=== PATIENT | male | born 1965 ===

== ENCOUNTER → 2020-10-08 12:49 | Outpatient (BNVA) | payer MEDICAID, SELFPAY | PROVIDERS: PCP Internal Medicine; Referring Provider Internal Medicine; Visit Provider Student in an Organized Health Care Education/Training Program | DX: M79.7 Fibromyalgia (principal); Z79.899 Other long term (current) drug therapy | CPT/HCPCS: 99212 ==

== ENCOUNTER 2020-11-05 13:47 | Outpatient (REF) | payer MEDICAID, SELFPAY ==
[2020-11-05 16:29] LABS: Free T4 (Free Thyroxine) 1.28 ng/dL (0.71-1.85); Thyroid Stimulating Hormone 2.48 uIU/mL (0.32-4.0)
[2020-11-06 11:17] LABS: Thyroglobulin Antibodies >1000 IU/mL (< or = 1); Thyroid Peroxidase Antibodies >900 IU/mL (<9)
== END 2020-11-05 13:48 | disposition home or self-care (01) ==
LOC: HO.LAB 13:47
PROVIDERS: PCP Internal Medicine; Referring Provider Internal Medicine; Visit Provider Internal Medicine Endocrinology, Diabetes & Metabolism
DX: E03.9 Hypothyroidism, unspecified (principal)
CPT/HCPCS: 36415; 84439; 84443; 86376; 86800; 99202

== ENCOUNTER → 2020-11-10 08:27 | Outpatient (BNVA) | payer OTHER, SELFPAY | PROVIDERS: PCP Internal Medicine; Referring Provider Internal Medicine; Visit Provider Physician Assistant | DX: Z76.89 Persons encountering health services in other specified circumstances (principal) ==

== ENCOUNTER → 2020-11-10 09:39 | Outpatient (BNVA) | payer MEDICARE, MEDICAID, SELFPAY | PROVIDERS: PCP Internal Medicine; Referring Provider Internal Medicine; Visit Provider Physician Assistant | DX: Z13.89 Encounter for screening for other disorder (principal) | CPT/HCPCS: Q3014 ==

== ENCOUNTER 2021-03-25 | Outpatient (REF) | payer MEDICAID, SELFPAY | END 2021-03-25 00:01 | disposition home or self-care (01) | LOC: CF | PROVIDERS: PCP Internal Medicine; Visit Provider Urology | DX: N28.1 Cyst of kidney, acquired (principal); R39.89 Other symptoms and signs involving the genitourinary system; Z87.442 Personal history of urinary calculi | CPT/HCPCS: 99212 ==

== ENCOUNTER → 2021-04-09 12:42 | Outpatient (BNVA) | payer MEDICARE, SELFPAY | PROVIDERS: Visit Provider Internal Medicine Endocrinology, Diabetes & Metabolism | CPT/HCPCS: 99212 ==

== ENCOUNTER → 2021-10-01 13:27 | Outpatient (BNVA) | payer MEDICARE, MEDICAID, SELFPAY | PROVIDERS: PCP Physician Assistant; Visit Provider Nurse Practitioner Family | DX: M79.7 Fibromyalgia (principal) | CPT/HCPCS: 99212 ==

== ENCOUNTER 2022-03-22 13:09 | Outpatient (REF) | payer MEDICARE, MEDICAID, SELFPAY ==
--- NOTE | ~2022-03-22 | US_ITS ---
EXAMINATION: US RETROPERITONEAL LIMITED (RENAL ONLY) CLINICAL INFORMATION: Calculus of kidney. COMPARISON: None. TECHNIQUE: Real-time imaging of the kidneys. FINDINGS: RIGHT KIDNEY: 9.5 x 5.8 x 5.3 cm (SAG x AP x TRV). The kidney is normal in size, contour, and echogenicity. Renal cortical thickness is normal. No calculi or focal parenchymal lesions. No hydronephrosis. LEFT KIDNEY: 12.1 x 5.8 x 7.7 cm (SAG x AP x TRV). The kidney is normal in size, contour, and echogenicity. Renal cortical thickness is normal. No renal calculi or hydronephrosis. There are multiple anechoic cysts. 1. Upper/lateral cyst measures 1.3 x 0.7 x 0.8 cm. 2. Upper midpole lateral cyst measures 0.6 x 0.7 x 0.7 cm. 3. Midpole medial cyst measures 3.5 x 2.4 x 3.4 cm. 4. Midpole medial cyst measures 11.0 x 6.4 x 6.1 cm. US/US renal BI IMPRESSION: At least 4 simple anechoic left renal cysts. There are no echogenic renal calculi or hydronephrosis.
== END 2022-03-22 13:10 | disposition home or self-care (01) ==
LOC: HO.US 13:09
PROVIDERS: Visit Provider Urology
DX: N20.0 Calculus of kidney (principal); N28.1 Cyst of kidney, acquired
CPT/HCPCS: 76775

== ENCOUNTER → 2022-04-13 12:57 | Outpatient (BNVA) | payer MEDICARE, MEDICAID, SELFPAY | PROVIDERS: PCP Internal Medicine; Visit Provider Internal Medicine Endocrinology, Diabetes & Metabolism | DX: E03.9 Hypothyroidism, unspecified (principal); E04.9 Nontoxic goiter, unspecified | CPT/HCPCS: 99212 ==

== ENCOUNTER → 2022-05-21 11:50 | Outpatient (BNVA) | payer MEDICARE, MEDICAID, SELFPAY | PROVIDERS: PCP Internal Medicine; Visit Provider Urology | DX: R39.89 Other symptoms and signs involving the genitourinary system (principal); N28.1 Cyst of kidney, acquired | CPT/HCPCS: Q3014 ==

== ENCOUNTER 2022-06-03 13:21 | Outpatient (REF) | payer MEDICARE, MEDICAID, SELFPAY ==
[2022-06-03 14:21] LABS: Appearance Urine CLEAR; Color Urine YELLOW; Glucose Urine UA NEG (NEG); Leukocyte Esterase Urine NEG (NEG); Nitrite Urine NEG (NEG); PH 5.5 (5.0-8.0); Specific Gravity - Urine >= 1.030 (1.005-1.025); Urine Blood TRACE (NEG); Urine Ketones NEG (NEG); Urine Protein NEG (NEG-TRACE)
[2022-06-03 14:34] LABS: WBC Urine 0-2 /HPF (0-4)
[2022-06-03 14:40] LABS: Alanine Aminotransferase 33 U/L (0-40); Albumin Level 4.5 g/dL (3.5-5.0); Alkaline Phosphatase 103 U/L (39-117); Anion Gap 13 (12-20); Aspartate Amino Transferase 19 U/L (5-37); Bilirubin Total 0.6 mg/dL (0.0-1.0); Blood Urea Nitrogen 20 mg/dL (9-16); Calcium 9.9 mg/dL (8.4-10.2); Carbon Dioxide 26 mmol/L (22-29); Chloride 106 mmol/L (96-108); Cholesterol 238 mg/dL; Estimated Glomerular Filt Rate > 60; Glucose Fasting 88 mg/dL (60-99); HDL Cholesterol 36 mg/dL; LDL Cholesterol Calculated 160 mg/dl; Potassium 4.6 mmol/L (3.3-5.1); Sodium 140 mmol/L (135-145); Triglycerides 210 mg/dL
[2022-06-03 15:01] LABS: Free T4 (Free Thyroxine) 1.22 ng/dL (0.71-1.85); Thyroid Stimulating Hormone 2.84 uIU/mL (0.32-4.0)
== END 2022-06-03 13:22 | disposition home or self-care (01) ==
LOC: HO.LAB 13:21
PROVIDERS: Absent Provider Internal Medicine Endocrinology, Diabetes & Metabolism; PCP Internal Medicine; Referring Provider Internal Medicine; Visit Provider Urology
DX: E04.9 Nontoxic goiter, unspecified (principal); E78.2 Mixed hyperlipidemia; E03.9 Hypothyroidism, unspecified
CPT/HCPCS: 36415; 80053; 80061; 81001; 84439; 84443

== ENCOUNTER 2022-06-28 12:46 | Outpatient (REF) | payer MEDICARE, MEDICAID, SELFPAY ==
--- NOTE | ~2022-06-28 | US_ITS ---
EXAMINATION: US THYROID CLINICAL INFORMATION: Nontoxic multinodular goiter. COMPARISON: None TECHNIQUE: Linear transducer grayscale and color Doppler examination with attention to the region of the thyroid. FINDINGS: SIZE: Measurements of the thyroid lobes and nodules are given in sagittal, anteroposterior and transverse dimensions respectively. Right Thyroid Lobe: 6.1 x 2.7 x 2.0 cm, volume 16.8 mL. Parenchyma: The gland echotexture is heterogeneous. Thyroid vascularity is normal. Left Thyroid Lobe: 6.0 x 2.2 x 1.8 cm, volume 12.2 mL. Parenchyma: The gland echotexture is heterogeneous. Thyroid vascularity is increased. Isthmus: 0.3 cm in maximum AP dimension. Estimated total number of nodules greater than or equal to 1 cm: 1. Entomology Professor nodules are described as follows: 1. Location: Left upper pole. Size: 1.0 x 0.9 x 1.1 cm, volume 0.39 mL. Nodule characteristics: Composition: Solid/almost completely solid (2). Echogenicity: Hypoechoic (2). Shape: Not taller than wide (0). Margins: Smooth (0). Echogenic Foci: None (0). ACR TI-RADS total points: 4 ACR TI-RADS category: 4 2. Location: Left upper pole. Size: 0.7 x 0.4 x 0.6 cm, volume 0.1 mL. Nodule characteristics: Composition: Mixed cystic and solid (1). Echogenicity: Hypoechoic (2). Shape: Not taller than wide (0). Margins: Smooth (0). Echogenic Foci: None (0). ACR TI-RADS total points: 3 ACR TI-RADS category: 3 NODES: No lymphadenopathy is seen in the tissue surrounding the thyroid gland. US/US thyroid IMPRESSION: Enlarged heterogeneous thyroid gland which demonstrates mildly increased vascularity. There are two nodules noted within the left thyroid lobe for which follow-up imaging is advised. ACR TI-RADS RECOMMENDATION REFERENCE: Ultrasound-guided fine-needle aspiration, followup ultrasound, no further follow up. * TR3 (3 points): FNA if more than or equal to 2.5 cm in maximum dimension, followup ultrasound in 1, 3 and 5 years if 1.5 to 2.4 cm in maximum dimension. * TR4 (4-6 points): FNA if more than or equal to 1.5 cm in maximum dimension, followup ultrasound in 1, 2, 3 and 5 years if 1 to 1.4 cm in maximum dimension. * TR3, TR4 or TR5 nodules that are below the size threshold for follow up receive no follow up.
== END 2022-06-28 12:47 | disposition home or self-care (01) ==
LOC: HO.US 12:46
PROVIDERS: Visit Provider Internal Medicine Endocrinology, Diabetes & Metabolism
DX: E03.9 Hypothyroidism, unspecified (principal); E04.2 Nontoxic multinodular goiter
CPT/HCPCS: 76536

== ENCOUNTER → 2022-07-28 13:16 | Outpatient (BNVA) | payer MEDICARE, MEDICAID, SELFPAY | PROVIDERS: PCP Internal Medicine; Visit Provider Urology | DX: N28.1 Cyst of kidney, acquired (principal); N40.1 Benign prostatic hyperplasia with lower urinary tract symptoms; N13.8 Other obstructive and reflux uropathy; R35.0 Frequency of micturition; R39.15 Urgency of urination; Z87.442 Personal history of urinary calculi; Z79.899 Other long term (current) drug therapy | CPT/HCPCS: 99212 ==

== ENCOUNTER 2022-11-15 13:03 | Outpatient (REF) | payer MEDICARE, MEDICAID, SELFPAY ==
[2022-11-15 15:20] LABS: Alanine Aminotransferase 35 U/L (0-40); Albumin Level 4.5 g/dL (3.5-5.0); Alkaline Phosphatase 108 U/L (39-117); Anion Gap 13 (12-20); Aspartate Amino Transferase 22 U/L (5-37); Bilirubin Total 0.7 mg/dL (0.0-1.0); Blood Urea Nitrogen 23 mg/dL (9-16); Calcium 10.4 mg/dL (8.4-10.2); Carbon Dioxide 27 mmol/L (22-29); Chloride 106 mmol/L (96-108); Cholesterol 231 mg/dL; Estimated Glomerular Filt Rate > 60; Glucose Fasting 88 mg/dL (60-99); HDL Cholesterol 31 mg/dL; LDL Cholesterol Calculated 163 mg/dl; Potassium 4.5 mmol/L (3.3-5.1); Sodium 141 mmol/L (135-145); Thyroid Stimulating Hormone 1.95 uIU/mL (0.32-4.0); Total Protein 7.9 g/dL (6.5-8.0); Triglycerides 189 mg/dL; Vitamin D 25-OH Total 14.1 ng/mL (>30)
[2022-11-17 05:15] LABS: HIV AB/AG Nonreactive (Nonreactive); HIV Num 1 0.06 S/CO (0.00-0.99)
== END 2022-11-15 13:04 | disposition home or self-care (01) ==
LOC: HO.LAB 13:03
PROVIDERS: PCP Internal Medicine; Visit Provider Internal Medicine
DX: Z11.4 Encounter for screening for human immunodeficiency virus [HIV] (principal); M54.16 Radiculopathy, lumbar region; M53.3 Sacrococcygeal disorders, not elsewhere classified; E55.9 Vitamin D deficiency, unspecified; E78.2 Mixed hyperlipidemia; E78.5 Hyperlipidemia, unspecified; E03.9 Hypothyroidism, unspecified; R53.83 Other fatigue; M79.7 Fibromyalgia
CPT/HCPCS: 36415; 80053; 80061; 82306; 84443; 87389; 99212

== ENCOUNTER → 2023-02-15 13:11 | Outpatient (BNVA) | payer MEDICARE, MEDICAID, SELFPAY | PROVIDERS: PCP Physician Assistant; Visit Provider Nurse Practitioner Family | DX: M79.7 Fibromyalgia (principal); M54.16 Radiculopathy, lumbar region; E55.9 Vitamin D deficiency, unspecified; Z79.899 Other long term (current) drug therapy | CPT/HCPCS: 99212 ==

== ENCOUNTER 2023-07-12 13:03 | Outpatient (REF) | payer MEDICARE, MEDICAID, SELFPAY ==
--- NOTE | ~2023-07-12 | US_ITS ---
EXAMINATION: US RETROPERITONEAL LIMITED (RENAL ONLY) CLINICAL INFORMATION: Cyst of kidney, acquired. COMPARISON: Renal ultrasound 03/22/2022. TECHNIQUE: Real-time imaging of the kidneys. FINDINGS: RIGHT KIDNEY: 10.0 x 5.0 x 5.3 cm (SAG x AP x TRV). The kidney is normal in size, contour, and echogenicity. Renal cortical thickness is normal. No renal calculi or hydronephrosis. At the upper pole, a 7 mm benign, simple cyst is seen. At the interpolar aspect, 7 mm and 7 mm benign, simple cysts are seen. These require no imaging follow-up. LEFT KIDNEY: 12.1 x 6.0 x 4.8 cm (SAG x AP x TRV). The kidney is normal in size, contour, and echogenicity. Renal cortical thickness is normal. No renal calculi or hydronephrosis. At the interpolar aspect, 1.1 cm, 0.7 cm, 3.0 cm and 10.5 cm benign, simple cysts are seen. As well, these require no imaging follow-up. US/US renal BI IMPRESSION: Benign, simple bilateral cysts are redemonstrated, requiring no imaging follow-up. The examination is otherwise unremarkable.
== END 2023-07-12 13:04 | disposition home or self-care (01) ==
LOC: HO.US 13:03
PROVIDERS: PCP Internal Medicine; Visit Provider Urology
DX: N28.1 Cyst of kidney, acquired (principal)
CPT/HCPCS: 76775

== ENCOUNTER 2023-07-26 13:37 | Outpatient (AMB) | payer MEDICARE, MEDICAID, SELFPAY ==
--- NOTE | 2023-07-26 13:47 | MHC.OFFVIS ---
Intake Intake Visit Reasons: 1Y US(set) Intake Note: Patient is present for Follow Up Ultrasound Urology Med: Terazosin Antibiotic Allergy:None Blood Thinner: None Pharmacy: [facility] Allergies nalbuphine [From Nubain] Allergy (Intermediate, Verified 08/04/23 13:30) Rash tramadol [TRAMADOL] Allergy (Intermediate, Verified 08/04/23 13:30) tachycardia HPI HPI Comments History of Present Illness Details Josh FLOWERS is a very pleasant male. He is a patient of Dr Mauro. He seen for the following urologic conditions. - renal cyst - nephrolithiasis - lower urinary tract symptoms Yi translation provided by qualified medical insurance coder Yearly follow-up Imaging stable no further follow-up required Good effect with terazosin continues Lower urinary tract symptoms Initial symptoms urinary urgency and frequency with weak stream Bladder ultrasound 12/18 minimal residual, no thickening Current therapy terazosin 5 mg Prior therapy tamsulosin Nephrolithiasis/Urolithiasis: 2018 Follow in 12 months with ultrasound the kidneys They are here for further evaluation of nephrolithiasis. Urolithiasis was diagnosed 07/07 [facility]. The patient previously had kidney stones whose composition w unknown. Laboratory investigations include no recent labs. 24 Hour urine evaluation none on file. Prior treatment(s) include observation. Prior imaging includes 07/15 , a CT (computed tomography) scan of the abdomen/pelvis (stone protocol) - 4.2 and 3.7 mm distal right ureter 07/15 , a renal ultrasound, showing no evidence of stones Left 5cm renal cyst 01/16 , a renal ultrasound, showing no evidence of stones, cyst on left side unchanged 01/17 , a renal ultrasound, showing no evidence of stones, left 6cm cyst - 03/19 renal ultrasound multiple cyst on left kidney Hydronephrosis none. PSA 03/18 0.7 Current therapeutic plan will be to continue with imaging surveillance [facility] Medical History Mild recurrent major depression Mixed hyperlipidemia Physical exam Hypothyroidism Non-toxic nodular goiter History of COVID-19 Insomnia Autoimmune thyroiditis Depression with anxiety Bladder pain Fibromyalgia GERD (gastroesophageal reflux disease) DDD (degenerative disc disease) Back pain Anxiety Depression Hx of renal calculi History of pericarditis Hyperlipidemia YEYS on CPAP Surgical History No significant past surgical history Family History Father Leukemia Liver cancer Mother Diabetes HTN (hypertension) CAD (coronary artery disease) Family/Other FH: mental illness Other FH: hypothyroidism Social History Household Members: Spouse Housing: Apartment Are you a primary manager managed care to a significant other at home: No Do you presently have visiting nurse or other home services: No Alcohol intake: never Patient Tobacco Use Status: Former Tobacco user Quit Date: 2016 Tobacco use type: Cigarette e-Cigarette/Vaping Use: Never Used Second Hand Smoke Exposure: No service: No Current occupational status: unemployed and disabled Cognitive needs: No Hearing needs: No Vision needs: Yes Review of Systems Const Denies chills and Denies fever(s) Card Reports no additional complaints and Denies syncope Resp Denies cough GI Denies abdominal pain and Denies heartburn Reports as per HPI and Denies change in libido Neuro Denies syncope Psych Denies change in libido Endo Denies change in libido Physical Exam Const General: cooperative, healthy appearing, comfortable and no acute distress Orientation/consciousness: patient oriented x3 HEENT Face and sinus: Yes normal facial exam Mouth: moist mucous membranes Neck Neck: Yes normal visual inspection, Yes full ROM and Yes trachea midline Chest Chest palpation & inspection: normal inspection of the chest Resp Effort & Inspection: normal respiratory effort, able to speak in complete sentences and no respiratory distress GI Inspection: Yes normal to inspection Back/Spine/Pelvis Cervical Spine: normal cervical lordosis Thoracic/Lumbar Spine: thoracic and lumbar spine normal to inspection Skin General skin exam: no rashes or lesions noted Neuro General: patient oriented x3, gait normal, tone normal and moves all extremities Extrem General: Yes normal to inspection and Yes capillary refill normal Assessment & Plan Assessment & Plan (1) Urinary urgency: Code(s): R39.15 - Urgency of urination (2) Renal cyst: Code(s): N28.1 - Cyst of kidney, acquired (3) Hx of renal calculi: Code(s): Z87.442 - Personal history of urinary calculi Plan 12 month follow-up PSA and renal ultrasound Orders: Orders Prostate Specific Antigen 364 Days N28.1 - Cyst of kidney, acquired US renal BI 364 Days N28.1 - Cyst of kidney, acquired Patient Instructions: Imaging studies, laboratory and physical exam results were discussed and reviewed in detail. No major barriers to patient understanding were identified. An opportunity to ask questions regarding the treatment plan was provided. All questions were answered. The patient expressed understanding and agreement with the above treatment plan. The patient is aware they should contact our office by phone for worsening of their current condition or the appearance of new urologic symptoms. Compliance is encouraged with any medications and followup testing that is ordered. It is a privilege to participate in the urologic care of your patient. If you have any questions or concerns regarding treatment for the above conditions, or other urologic issues, please do not hesitate to contact me. The office telephone contact is [phone]. This note is constructed using voice recognition software. While every effort has been made to ensure accuracy solar installer errors may have been included. Yours sincerely, Dr Tohmas Wray MD, [facility] - Urology Providers of Expert, Compassionate Care for the Genitourinary System Coding Level of Care Code Est Pt Level 4 (48548) Diagnoses Urinary urgency R39.15 Renal cyst N28.1 Hx of renal calculi Z87.442
== END 2023-07-26 14:19 | disposition home or self-care (01) ==
PROVIDERS: PCP Internal Medicine; Visit Provider Urology
DX: R39.15 Urgency of urination (principal); N28.1 Cyst of kidney, acquired; Z87.442 Personal history of urinary calculi
CPT/HCPCS: 99214

== ENCOUNTER → 2023-07-26 13:37 | Outpatient (BNVA) | payer MEDICARE, MEDICAID, SELFPAY | PROVIDERS: Visit Provider Urology | DX: R39.15 Urgency of urination (principal); N28.1 Cyst of kidney, acquired; Z87.442 Personal history of urinary calculi | CPT/HCPCS: 99212 ==

== ENCOUNTER 2023-08-04 13:08 | Outpatient (AMB) | payer MEDICARE, MEDICAID, SELFPAY ==
[2023-08-04 13:11] VITALS: BP 112/80; PULSE 101; O2SAT 96; BMI 28.7
--- NOTE | 2023-08-04 13:11 | MHC.PC.OV ---
Vital Signs 08/04/23 13:11 Height 5 ft 10 in Weight 200 lb BMI 28.7 BP 112/80 Blood Pressure Location Lt brachial Position Sitting Pulse 101 H Pulse Source Pulse Oximeter Pulse Oximetry (%) 96 Oxygen Delivery Method Room Air Intake Visit Reasons: thyroid Correction Warden Required: No Accompanied by: Self / Same As Patient Allergies nalbuphine [From Nubain] Allergy (Intermediate, Verified 08/04/23 13:30) Rash tramadol [TRAMADOL] Allergy (Intermediate, Verified 08/04/23 13:30) tachycardia Medication List - Last Reconciled 08/04/23 by Rhianna Mauro MD alprazolam 0.25 mg PO DAILY PRN 30 days atorvastatin 20 mg PO BEDTIME 90 days cholecalciferol (vitamin D3) 50 mcg PO DAILY diclofenac sodium 1% (Voltaren Arthritis Pain) 4 grams topical QID PRN duloxetine 60 mg PO DAILY fluoxetine 1 cap PO QAM gabapentin 300 mg PO BID 30 days hydroxyzine pamoate 1 cap PO TID ibuprofen 600 mg PO Q8H PRN 7 days levothyroxine 125 mcg PO DAILY 90 days risperidone 1 tab PO BEDTIME terazosin 5 mg PO BEDTIME 90 days trazodone 1 tab PO BEDTIME Tobacco use date assessed: 08/04/23 Dental Screening Dental Screen Date: 08/04/23 Did you have a dental visit in the last 12 months?: No Did you have a dental problem in the last 6 months where you did not have access to dental care?: No Was dental information given to patient?: No HPI HPI Comments History of Present Illness Details This is a 58-year-old male with mild recurrent major depression, hypothyroidism and mixed hyperlipidemia that comes today complaining of left ankle pain that started yesterday after he was visiting a patient at [facility] and was hit by meal cart in left ankle. Has a boot. Will be referred to physical therapy. Depression stable with SSRIs. TSH will be ordered. On statins for mixed hyperlipidemia and lipid panel will also be ordered. [facility] Medical History (Updated 08/04/23 @ 13:40 by Rhianna Mauro MD) Mild recurrent major depression Mixed hyperlipidemia Physical exam Hypothyroidism Non-toxic nodular goiter History of COVID-19 Insomnia Autoimmune thyroiditis Depression with anxiety Bladder pain Fibromyalgia GERD (gastroesophageal reflux disease) DDD (degenerative disc disease) Back pain Anxiety Depression Hx of renal calculi History of pericarditis Hyperlipidemia YESY on CPAP Surgical History No significant past surgical history Family History Father Leukemia Liver cancer Mother Diabetes HTN (hypertension) CAD (coronary artery disease) Family/Other FH: mental illness Other FH: hypothyroidism Social History Household Members: Spouse Housing: Apartment Are you a primary healthcare representative to a significant other at home: No Do you presently have visiting nurse or other home services: No Alcohol intake: never Patient Tobacco Use Status: Former Tobacco user Quit Date: 2016 Tobacco use type: Cigarette e-Cigarette/Vaping Use: Never Used Second Hand Smoke Exposure: No service: No Current occupational status: unemployed and disabled Cognitive needs: No Hearing needs: No Vision needs: Yes Questionnaire PHQ-9 Over the last 2 weeks, how often have you been bothered by any of the following problems? 1. Little interest or pleasure in doing things: not at all 2. Feeling down, depressed, or hopeless: not at all 3. Trouble falling or staying asleep, or sleeping too much: not at all 4. Feeling tired or having little energy: not at all 5. Poor appetite or overeating: not at all 6. Feeling bad about yourself - or that you are a failure or have let yourself or your family down: not at all 7. Trouble concentrating on things, such as reading the newspaper or watching television: not at all 8. Moving or speaking so slowly that other people could have noticed. Or the opposite - being so fidgety or restless that you have been moving around a lot more than usual: not at all 9. Thoughts that you would be better off or of hurting yourself in some way: not at all Total score: 0 Depression Screening Interpretation: Negative 47372 - PHQ-9 Billing: Yes Source: Developed by Drs. Elijah Krause, Elsie Castelan, Syd Carvalho and colleagues, with an educational robb from [employer]. Thrive Questionnaire Date Thrive assessed: 08/04/23 I am a: Patient What is your living situation today?: I have a steady place to live Within the past 12 months, did the food you bought not last and you didn't have the money to get more?: Never true Within the past 12 months, did you worry whether your food would run out before you got money to buy more?: Never true Do you have trouble paying for medicines?: No Do you have trouble getting transportation to medical appointments?: No Do you have trouble paying your heating and electricity bill?: No Do you have trouble taking care of your child, family member or friend?: No Do you have trouble with day-to-day activities such as bathing, preparing meals, shopping, managing finances, etc.?: No Are you currently unemployed and looking for a job?: No Are you interested in more education?: No Please select the resources that you would like help with: None Currently or been in a relationship where the following occur: no concerns reported AUDIT C Alcohol Use Questionnaire (AUDIT-C) 1. How often do you have a drink containing alcohol?: Never Total Score: 0 VAISHALI-7 AMB Questionnaire VAISHALI-7 Date VAISHALI - 7 assessed: 08/04/23 Feeling nervous, anxious, or on edge: 0 = Not at all Not being able to stop or control worryin = Not at all Worrying too much about different things: 0 = Not at all Trouble relaxin = Not at all Being so restless that it is hard to sit still: 0 = Not at all Becoming easily annoyed or irritable: 0 = Not at all Feeling afraid as if something awful might happen: 0 = Not at all Total VAISHALI-7 score (0-4 normal; 5-9 mild; 10-14 moderate; 15-21 severe): 0 Source: Developed by Drs. Elijah Krause, Elsie Castelan, Syd Carvalho and colleagues, with an educational robb from [employer]. VAISHALI-7 Assessment Billing VAISHALI-7 Assessment Tool: VAISHALI-7 Assessment 45293 Review of Systems Const All systems reviewed & are unremarkable except as noted in HPI and below Eyes Reports no additional complaints, Denies change in vision and Denies other visual disturbances Card Denies chest pain at rest, Denies chest pain with activity, Denies edema, Denies irregular heart rhythm, Denies claudication, Denies dyspnea, Denies dyspnea on exertion, Denies orthopnea, Denies paroxysmal nocturnal dyspnea and Denies slow heart rate Resp Denies cough, Denies dyspnea and Denies dyspnea on exertion GI Denies abdominal pain, Denies change in bowel habits, Denies excessive flatus, Denies nausea and Denies vomiting Denies urinary hesitancy, Denies urinary incontinence and Denies urinary urgency Musc Denies abnormal gait, Denies atrophy, Denies deformity and Denies limited range of motion Skin/Breast Denies bleeding lesions, Denies changing lesions and Denies rash Neuro Denies abnormal gait and Denies lack of coordination Physical exam (Primary Care) Vital Signs: Last Vital Signs Pulse 101 H 08/04/23 13:11 BP 112/80 08/04/23 13:11 Pulse Ox 96 08/04/23 13:11 Oxygen Delivery Method Room Air 08/04/23 13:11 BMI result Body Mass Index 28.7 Tobacco/Smoking Status: Tobacco use Status Tobacco use date assessed 08/04/23 08/04/23 13:18 Patient Tobacco Use Status Former Tobacco user 08/04/23 13:18 Tobacco use type Cigarette 08/04/23 13:18 e-Cigarette/Vaping Use Never Used 08/04/23 13:18 PHQ-9: PHQ-9 Score PHQ-9: Total score 0 08/04/23 13:18 Depression Screening Interpretation: Negative Thrive Assessment: Date of Thrive Assessment Date Thrive assessed 08/04/23 08/04/23 13:18 Currently or been in a relationship where the following occur: no concerns reported Const Other: Walk with crutches, left foot has boot Eyes General: appearance normal, both eyes and all related structures Eyelids: Yes eyelids normal Conjunctivae: conjunctivae normal Neck Neck: Yes normal visual inspection and Yes supple Resp Effort & Inspection: normal respiratory effort Auscultation: clear to auscultation bilaterally Cardio Jugular venous distension: no JVD Rate: regular rate Rhythm: regular rhythm Heart sounds: S1 normal heart sound present and S2 normal heart sound present Extrem General: Yes full ROM Assessment and Plan Assessment & Plan (1) Mild recurrent major depression: Code(s): F33.0 - Major depressive disorder, recurrent, mild Plan: Continue fluoxetine (2) Mixed hyperlipidemia: Code(s): E78.2 - Mixed hyperlipidemia Plan: Continue statins. Repeat lipid panel. (3) Hypothyroidism: Code(s): E03.9 - Hypothyroidism, unspecified Plan: Continue levothyroxine. (4) Left ankle sprain: Code(s): S93.402A - Sprain of unspecified ligament of left ankle, initial encounter Plan: Physical therapy ordered Orders: Orders Lipid Panel Today E78.5 - Hyperlipidemia, unspecified PT Evaluation and Treatment Today S93.402A - Sprain of unspecified ligament of left ankle, initial encounter Thyroid Stimulating Hormone Today E03.9 - Hypothyroidism, unspecified Comprehensive [place]. Panel Fast Today E78.2 - Mixed hyperlipidemia Vitamin D 25-OH Total Today E55.9 - Vitamin D deficiency, unspecified Medications: Refilled atorvastatin 20 mg PO BEDTIME 90 days 90 tabs 1RF E78.2 - Mixed hyperlipidemia Coding Level of Care Code Est Pt Level 4 (42392) Diagnoses Mild recurrent major depression F33.0 Mixed hyperlipidemia E78.2 Hypothyroidism E03.9 Left ankle sprain S93.402A Additional Codes VAISHALI-7 Assessment Billing - VAISHALI-7 Assessment Tool: VAISHALI-7 Assessment 48989 ([id number]) Time Spent (min) 22
== END 2023-08-04 13:40 | disposition home or self-care (01) ==
PROVIDERS: PCP Internal Medicine; Visit Provider Internal Medicine
DX: F33.0 Major depressive disorder, recurrent, mild (principal); E78.2 Mixed hyperlipidemia; E03.9 Hypothyroidism, unspecified; S93.402A Sprain of unspecified ligament of left ankle, initial encounter
CPT/HCPCS: 99214

== ENCOUNTER 2023-12-22 13:12 | Outpatient (REF) | payer OTHER, SELFPAY ==
--- NOTE | ~2023-12-22 | XR_ITS ---
EXAMINATION: XR ANKLE, LEFT CLINICAL INFORMATION: Pain COMPARISON: None available. TECHNIQUE: AP, lateral, and mortise views of the left ankle. FINDINGS: No fracture or dislocation. Mortise is intact. No focal soft tissue swelling. Alignment and articulations maintained. Posterior calcaneal spurring. XR/XR ankle LT min 3V IMPRESSION: No acute bony pathology.
== END 2023-12-22 13:13 | disposition home or self-care (01) ==
LOC: HO.HOSX 13:12
PROVIDERS: Visit Provider Physician Assistant
DX: S93.402A Sprain of unspecified ligament of left ankle, initial encounter (principal)
CPT/HCPCS: 73610; 99202

== ENCOUNTER 2023-12-22 14:21 | Outpatient (AMB) | payer MEDICARE, MEDICAID, SELFPAY ==
--- NOTE | 2023-12-22 14:30 | A.OFFVIS_ITS ---
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 Patient reports off and on pain for 3-4 months due to trauma to his ankle. He states that he landed on his ankle wrong which jerked his left ankle. Having some off and on numbness in his left ankle and foot Allergies nalbuphine [From Nubain] Allergy (Intermediate, Verified 12/22/23 14:40) Rash tramadol [TRAMADOL] Allergy (Intermediate, Verified 12/22/23 14:40) tachycardia HPI MECHANICAL ENGINEERING DRAFTSPERSON- LT Ankle sprain HPI Details 58-year-old male, who is Indonesian speakin g, presents in the office today, as a new patient, for an evaluation of left ankle pain. The patient presented to the [facility] ED on 11/25/2023 status post rolling his ankle while walking, which occurred on 11/24/2023. While in the office today the patient reports intermittent pain for 3-4 months due to trauma to the left ankle. He claims to have landed wrong on his ankle causing the ankle to jerk. He reports intermittent numbness in the left ankle extending to the foot. [facility] Medical History Mild recurrent major depression Mixed hyperlipidemia Physical exam Hypothyroidism Non-toxic nodular goiter History of COVID-19 Insomnia Autoimmune thyroiditis Depression with anxiety Bladder pain Fibromyalgia GERD (gastroesophageal reflux disease) DDD (degenerative disc disease) Back pain Anxiety Depression Hx of renal calculi History of pericarditis Hyperlipidemia YESY on CPAP Surgical History No significant past surgical history Family History Father Leukemia Liver cancer Mother Diabetes HTN (hypertension) CAD (coronary artery disease) Family/Other FH: mental illness Other FH: hypothyroidism Social History Household Members: Spouse Housing: Apartment Are you a primary menagerie caretaker to a significant other at home: No Do you presently have visiting nurse or other home services: No Alcohol intake: never Patient Tobacco Use Status: Former Tobacco user Quit Date: 2016 Tobacco use type: Cigarette e-Cigarette/Vaping Use: Never Used Second Hand Smoke Exposure: No service: No Current occupational status: unemployed and disabled Cognitive needs: No Hearing needs: No Vision needs: Yes Review of Systems Const All systems reviewed & are unremarkable except as noted in HPI and below Physical Exam Vital Signs: BMI result Body Mass Index 28.7 Const General: cooperative and no acute distress Orientation/consciousness: patient oriented x3 Resp Effort & Inspection: normal respiratory effort and able to speak in complete sentences Cardio Peripheral pulses: Peripheral pulses 2+ throughout Skin General skin exam: no rashes or lesions noted Neuro General: patient oriented x3 Extrem Other: Left ankle: Normal to inspection. No ecchymosis, erythema, or edema. Slight tenderness to palpation over the lateral malleolus. Limited dorsiflexion, plantar flexion, pronation and supination due to stiffness and slight pain. Negative anterior drawer. Sensation intact. Pedal Pulse intact. Assessment & Plan Assessment & Plan (1) Left ankle sprain: Code(s): S93.402A - Sprain of unspecified ligament of left ankle, initial encounter Qualifiers: Encounter type: initial encounter Involved ligament of ankle: unspeci fied ligament Qualified Code(s): S93.402A - Sprain of unspecified ligament of left ankle, initial encounter Plan Mr. Cecile De Santiago is a 58-year-old male, who is Indonesian speaking, presents in the office today, as a new patient, for an evaluation of left ankle pain. The patient presented to the [facility] ED on 11/25/2023 status post rolling his ankle while walking, which occurred on 11/24/2023. While in the office today the patient reports intermittent pain for 3-4 months due to trauma to the left ankle. He claims to have landed wrong on his ankle causing the ankle to jerk. He reports intermittent numbness in the left ankle extending to the foot. The patient will continue to attend physical therapy. I have placed an order for additional sessions. He would like to go to an outside facility, therefore a paper copy has been given to the patient. Follow up will be in 6 weeks, or sooner if needed. X-rays of the left ankle which were obtained while in the office today and were reviewed by me, Jess Iglesias PA-C, revealed no acute fractures or dislocation. X-rays of the left ankle, obtained on 11/25/2023, revealed: No acute fracture or dislocation. Orders: Orders XR ankle LT min 3V Today M25.579 - Pain in unspecified ankle and joints of unspecified foot PT Evaluation and Treatment Today S93.402A - Sprain of unspecified ligament of left ankle, initial encounter Patient Instructions: Scribed for Jess Iglesias PA-C by Sri Lopes medical authorization specialist, on 12/19/2023 at 2:32 pm, EST. Coding Level of Care Code New Pt Level 3 (42797) Diagnoses Sprain of left ankle, unspecified ligament, initial encounter S93.402A Encounter type: initial encounter Involved ligament of ankle: unspecified ligament
[2023-12-22 14:31] VITALS: BMI 28.7
== END 2023-12-22 15:29 | disposition home or self-care (01) ==
PROVIDERS: PCP Internal Medicine; Visit Provider Physician Assistant
DX: S93.402A Sprain of unspecified ligament of left ankle, initial encounter (principal)
CPT/HCPCS: 99203

== ENCOUNTER 2024-01-12 13:01 | Outpatient (AMB) | payer OTHER, SELFPAY ==
--- NOTE | 2024-01-12 13:14 | A.OFFPC_ITS ---
Vital Signs 01/12/24 13:15 01/12/24 13:50 Height 5 ft 10 in Weight 209 lb BMI 30.0 BP 140/82 H 138/80 Blood Pressure Location Lt brachial Lt brachial Position Sitting Sitting Intake Visit Reasons: Tyra 11/25/23 Lt ankle sprain/Ortho referral Intake Note: [facility] ED follow up left ankle sprain, requesting endocrinology referral, sinusitis, lab request Title 1 Tutor Required: No Accompanied by: Self / Same As Patient Allergies nalbuphine [From Nubain] Allergy (Intermediate, Verified 01/12/24 13:35) Rash tramadol [TRAMADOL] Allergy (Intermediate, Verified 01/12/24 13:35) tachycardia Medication List - Last Reconciled 01/12/24 by Rhianna Mauro MD alprazolam 0.25 mg PO DAILY PRN 30 days atorvastatin 20 mg PO BEDTIME 90 days cholecalciferol (vitamin D3) 50 mcg PO DAILY diclofenac sodium 1% (Voltaren Arthritis Pain) 4 grams topical QID PRN duloxetine 60 mg PO DAILY fluoxetine 1 cap PO QAM gabapentin 300 mg PO BID 30 days hydroxyzine pamoate 1 cap PO TID ibuprofen 600 mg PO Q8H PRN 7 days levothyroxine 125 mcg PO DAILY 90 days risperidone 1 tab PO BEDTIME terazosin 5 mg PO BEDTIME 90 days trazodone 1 tab PO BEDTIME Tobacco use date assessed: 01/12/24 Dental Screening Dental Screen Date: 01/12/24 Did you have a dental visit in the last 12 months?: Yes Did you have a dental problem in the last 6 months where you did not have access to dental care?: No Was dental information given to patient?: Patient has dentist HPI HPI Comments History of Present Illness Details This is a 58-year-old male with hypothyroidism, mild major depression, anxiety, and mixed hyperlipidemia that complains of nasal congestion with no fever that started about 4 days ago. He does not want to be tested for COVID, flu or RSV. TSH was order for follow-up of hypothyroidism. Depression and anxiety are follow by Psychiatry and has been stable with medications. Lipid panel was also ordered. Went to ER last month due to left ankle sprain and was seen by ortho. Complains of sore throat. [facility] Medical History (Updated 01/12/24 @ 13:45 by Rhianna Mauro MD) Mild recurrent major depression Mixed hyperlipidemia Physical exam Hypothyroidism Non-toxic nodular goiter History of COVID-19 Insomnia Autoimmune thyroiditis Depression with anxiety Bladder pain Fibromyalgia GERD (gastroesophageal reflux disease) DDD (degenerative disc disease) Back pain Anxiety Depression Hx of renal calculi History of pericarditis Hyperlipidemia YESY on CPAP Surgical History No significant past surgical history Family History Father Leukemia Liver cancer Mother Diabetes HTN (hypertension) CAD (coronary artery disease) Family/Other FH: mental illness Other FH: hypothyroidism Social History Household Members: Spouse Housing: Apartment Are you a primary health care liaison to a significant other at home: No Do you presently have visiting nurse or other home services: No Alcohol intake: never Patient Tobacco Use Status: Former Tobacco user Quit Date: 2016 Tobacco use type: Cigarette e-Cigarette/Vaping Use: Never Used Second Hand Smoke Exposure: No service: No Current occupational status: unemployed and disabled Cognitive needs: No Hearing needs: No Vision needs: Yes Questionnaire PHQ-9 Over the last 2 weeks, how often have you been bothered by any of the following problems? 1. Little interest or pleasure in doing things: not at all 2. Feeling down, depressed, or hopeless: more than half the days 3. Trouble falling or staying asleep, or sleeping too much: not at all 4. Feeling tired or having little energy: more than half the days 5. Poor appetite or overeating: not at all 6. Feeling bad about yourself - or that you are a failure or have let yourself or your family down: not at all 7. Trouble concentrating on things, such as reading the newspaper or watching television: not at all 8. Moving or speaking so slowly that other people could have noticed. Or the opposite - being so fidgety or restless that you have been moving around a lot more than usual: not at all 9. Thoughts that you would be better off or of hurting yourself in some way: not at all Total score: 4 Depression Screening Interpretation: Negative Depression Screening Done: Yes 17481 - PHQ-9 Billing: Yes Source: Developed by Drs. Elijah Krause, Elsie Castelan, Syd Carvalho and colleagues, with an educational robb from [employer]. Thrive Questionnaire Date Thrive assessed: 01/12/24 I am a: Patient What is your living situation today?: I have a steady place to live Within the past 12 months, did the food you bought not last and you didn't have the money to get more?: Never true Within the past 12 months, did you worry whether your food would run out before you got money to buy more?: Never true Do you have trouble paying for medicines?: No Do you have trouble getting transportation to medical appointments?: No Do you have trouble paying your heating and electricity bill?: No Do you have trouble taking care of your child, family member or friend?: No Do you have trouble with day-to-day activities such as bathing, preparing meals, shopping, managing finances, etc.?: No Are you currently unemployed and looking for a job?: No Are you interested in more education?: No Please select the resources that you would like help with: None Currently or been in a relationship where the following occur: no concerns reported THRIVE Score: 0 AUDIT C Alcohol Use Questionnaire (AUDIT-C) 1. How often do you have a drink containing alcohol?: Never Total Score: 0 VAISHALI-7 AMB Questionnaire VAISHALI-7 Date VAISHALI - 7 assessed: 01/12/24 Feeling nervous, anxious, or on edge: 1 = Several days Not being able to stop or control worryin = Not at all Worrying too much about different things: 1 = Several days Trouble relaxin = Not at all Being so restless that it is hard to sit still: 0 = Not at all Becoming easily annoyed or irritable: 1 = Several days Feeling afraid as if something awful might happen: 1 = Several days Total VAISHALI-7 score (0-4 normal; 5-9 mild; 10-14 moderate; 15-21 severe): 4 Source: Developed by Drs. Elijah Krause, Syd Elena and colleagues, with an educational robb from [employer]. VAISHALI-7 Assessment Billing VAISHALI-7 Assessment Tool: VAISHALI-7 Assessment 14538 Review of Systems Const All systems reviewed & are unremarkable except as noted in HPI and below Eyes Reports no additional complaints, Denies change in vision and Denies other visual disturbances Card Denies chest pain at rest, Denies chest pain with activity, Denies edema, Denies irregular heart rhythm, Denies claudication, Denies dyspnea, Denies dyspnea on exertion, Denies orthopnea, Denies paroxysmal nocturnal dyspnea and Denies slow heart rate Resp Denies cough, Denies dyspnea and Denies dyspnea on exertion GI Denies abdominal pain, Denies change in bowel habits, Denies excessive flatus, Denies nausea and Denies vomiting Denies urinary hesitancy, Denies urinary incontinence and Denies urinary urgency Musc Denies atrophy, Denies deformity and Denies limited range of motion Physical exam (Primary Care) Vital Signs: Last Vital Signs BP 138/80 01/12/24 13:50 BMI result Body Mass Index 30.0 Tobacco/Smoking Status: Tobacco use Status Tobacco use date assessed 01/12/24 01/12/24 13:22 Patient Tobacco Use Status Former Tobacco user 01/12/24 13:22 Tobacco use type Cigarette 01/12/24 13:22 e-Cigarette/Vaping Use Never Used 01/12/24 13:22 PHQ-9: PHQ-9 Score PHQ-9: Total score 4 01/12/24 13:52 Depression Screening Interpretation: Negative Thrive Assessment: Date of Thrive Assessment Date Thrive assessed 01/12/24 01/12/24 13:22 Currently or been in a relationship where the following occur: no concerns reported Const Limitations: ambulation with cane Eyes General: appearance normal, both eyes and all related structures Eyelids: Yes eyelids normal Conjunctivae: conjunctivae normal Neck Neck: Yes normal visual inspection and Yes supple Thyroid: diffusely enlarged Resp Effort & Inspection: normal respiratory effort Auscultation: clear to auscultation bilaterally Cardio Jugular venous distension: no JVD Rate: regular rate Rhythm: regular rhythm Heart sounds: S1 normal heart sound present and S2 normal heart sound present Extrem General: Yes full ROM Assessment and Plan Assessment & Plan (1) Mild recurrent major depression: Code(s): F33.0 - Major depressive disorder, recurrent, mild Plan: Continue fluoxetine. Follow-up with psychiatry. (2) VAISHALI (generalized anxiety disorder): Code(s): F41.1 - Generalized anxiety disorder Plan: Continue benzodiazepines as needed. Follow-up with psychiatry. (3) Mixed hyperlipidemia: Code(s): E78.2 - Mixed hyperlipidemia Plan: Continue statins. Repeat lipid panel. Follow a low-cholesterol diet. (4) Hypothyroidism: Code(s): E03.9 - Hypothyroidism, unspecified Plan: Continue levothyroxine. Monitor TSH. (5) Sinusitis: Code(s): J32.9 - Chronic sinusitis, unspecified Plan: Start Zpack. Orders: Orders Lipid Panel Today E78.5 - Hyperlipidemia, unspecified Vitamin D 25-OH Total Today E55.9 - Vitamin D deficiency, unspecified Comprehensive [place]. Panel Fast Today E78.2 - Mixed hyperlipidemia Thyroid Stimulating Hormone Today E03.9 - Hypothyroidism, unspecified US thyroid Today E04.9 - Nontoxic goiter, unspecified Medications: New azithromycin Take 2 tabs the first day, then 1 tab the next 4 days 250 mg PO DAILY 5 days 6 tabs 0RF J32.9 - Chronic sinusitis, unspecified Coding Level of Care Code Est Pt Level 4 (38767) Diagnoses Mild recurrent major depression F33.0 VAISHALI (generalized anxiety disorder) F41.1 Mixed hyperlipidemia E78.2 Hypothyroidism E03.9 Sinusitis J32.9 Additional Codes VAISHALI-7 Assessment Billing - VAISHALI-7 Assessment Tool: VAISHALI-7 Assessment 70018 ([id number]) Time Spent (min) 22
[2024-01-12 13:15] VITALS: BP 140/82
[2024-01-12 13:50] VITALS: BP 138/80
== END 2024-01-12 13:50 | disposition home or self-care (01) ==
PROVIDERS: PCP Internal Medicine; Visit Provider Internal Medicine
DX: E78.2 Mixed hyperlipidemia (principal); F33.0 Major depressive disorder, recurrent, mild; F41.1 Generalized anxiety disorder; E03.9 Hypothyroidism, unspecified; J32.9 Chronic sinusitis, unspecified
CPT/HCPCS: 99214

== ENCOUNTER 2024-02-02 11:02 | Outpatient (AMB) | payer MEDICARE, MEDICAID, SELFPAY ==
--- NOTE | 2024-02-02 11:30 | A.OFFVIS_ITS ---
Intake Intake Visit Reasons: ov- LT Ankle sprain Intake Note: Josh is a 58 year old male who presents today for a follow up for his left ankle sprain. Patient reports his pain has gotten better since his last visit. He states that PT is going well, he would like more sessions. He has a concerns of a muscle spasm that started. Allergies nalbuphine [From Nubain] Allergy (Intermediate, Verified 02/02/24 11:35) Rash tramadol [TRAMADOL] Allergy (Intermediate, Verified 02/02/24 11:35) tachycardia HPI ov- LT Ankle sprain HPI Details 58-year-old male, who is Citizen Of [place] speakin g, presents in the office today for a follow up of a left ankle sprain. I last saw the patient in the office on 12/22/2023 when he was encouraged to continue to work with physical therapy. While in the office today the patient reports his pain has improved since his last visit. He confirms attending physical therapy and states it has been going well; he would like to attend more sessions. He does express a concern for muscle spasms that have started. ON LICENSE OF [facility] Medical History Mild recurrent major depression Mixed hyperlipidemia Physical exam Hypothyroidism Non-toxic nodular goiter History of COVID-19 Insomnia Autoimmune thyroiditis Depression with anxiety Bladder pain Fibromyalgia GERD (gastroesophageal reflux disease) DDD (degenerative disc disease) Back pain Anxiety Depression Hx of renal calculi History of pericarditis Hyperlipidemia YESY on CPAP Surgical History No significant past surgical history Family History Father Leukemia Liver cancer Mother Diabetes HTN (hypertension) CAD (coronary artery disease) Family/Other FH: mental illness Other FH: hypothyroidism Social History Household Members: Spouse Housing: Apartment Are you a primary neonatal critical care nurse to a significant other at home: No Do you presently have visiting nurse or other home services: No Alcohol intake: never Patient Tobacco Use Status: Former Tobacco user Quit Date: 2016 Tobacco use type: Cigarette e-Cigarette/Vaping Use: Never Used Second Hand Smoke Exposure: No service: No Current occupational status: unemployed and disabled Cognitive needs: No Hearing needs: No Vision needs: Yes Review of Systems Const All systems reviewed & are unremarkable except as noted in HPI and below Physical Exam Const General: cooperative, healthy appearing and no acute distress Resp Effort & Inspection: normal respiratory effort and able to speak in complete sentences Cardio Rate: regular rate Peripheral pulses: Peripheral pulses 2+ throughout GI Palpation (GI): Soft to palpation Skin Lesions: no lesions Rashes: no rashes Extrem Other: Left ankle: Normal to inspection. No ecchymosis, erythema, or edema. Slight tenderness to palpation over the lateral malleolus. Limited dorsiflexion, plantar flexion, pronation and supination due to stiffness and slight pain. Negative anterior drawer. Sensation intact. Pedal Pulse intact. Assessment & Plan Assessment & Plan (1) Left ankle sprain: Code(s): S93.402A - Sprain of unspecified ligament of left ankle, initial encounter Qualifiers: Encounter type: initial encounter Involved ligament of ankle: unspecified ligament Qualified Code(s): S93.402A - Sprain of unspecified ligament of left ankle, initial encounter Plan Mr. Cecile De Santiago is a 58-year-old male, who is Citizen Of [place] speaking, presents in the office today for a follow up of a left ankle sprain. I last saw the patient in the office on 12/22/2023 when he was encouraged to continue to work with physical therapy. While in the office today the patient reports his pain has improved since his last visit. He confirms attending physical therapy and states it has been going well; he would like to attend more sessions. He does express a concern for muscle spasms that have started. Patient will be referred for more sessions with physical therapy to work on gentle ROM, strengthening, and modalities. Follow up will be PRN, or sooner if needed. Orders: Orders PT Evaluation and Treatment Today S93.402A - Sprain of unspecified ligament of left ankle, initial encounter Patient Instructions: Scribed by Sri Lopes medical scientific liaison, for Jses Harris CASTELAN on 02/02/2024 at 11:16 am, EST. Coding Level of Care Code Est Pt Level 3 (56426) Diagnoses Sprain of left ankle, unspecified ligament, initial encounter S93.402A Encounter type: initial encounter Involved ligament of ankle: unspecified ligament
== END 2024-02-02 12:11 | disposition home or self-care (01) ==
PROVIDERS: PCP Internal Medicine; Visit Provider Physician Assistant
DX: S93.402A Sprain of unspecified ligament of left ankle, initial encounter (principal)
CPT/HCPCS: 99213

== ENCOUNTER → 2024-02-02 11:02 | Outpatient (BNVA) | payer OTHER, SELFPAY | PROVIDERS: PCP Internal Medicine; Visit Provider Physician Assistant | DX: S93.402D Sprain of unspecified ligament of left ankle, subsequent encounter (principal) | CPT/HCPCS: 99212 ==

== ENCOUNTER 2024-02-06 13:55 | Outpatient (REF) | payer OTHER, SELFPAY ==
--- NOTE | ~2024-02-06 | US_ITS ---
EXAMINATION: US THYROID CLINICAL INFORMATION: Nontoxic goiter, unspecified. COMPARISON: Thyroid ultrasound 06/28/2022. TECHNIQUE: Linear transducer vargas-scale and color Doppler examination with attention to the region of the thyroid. FINDINGS: SIZE: Measurements of the thyroid lobes and nodules are given in sagittal, anteroposterior and transverse dimensions respectively. Right Thyroid Lobe: 5.4 x 2.0 x 2.5 cm, volume 14.1 mL. Previously 6.1 x 2.7 x 2.0 cm, volume 16.8 mL. Parenchyma: The gland echotexture is heterogeneous. Thyroid vascularity is increased. Left Thyroid Lobe: 5.7 x 2.4 x 2.5 cm, volume 17.9 mL. Previously 6.0 x 2.2 x 1.8 cm, volume 12.2 mL. Parenchyma: The gland echotexture is heterogeneous. Thyroid vascularity is increased. Isthmus: 0.8 cm in maximum AP dimension. Previously 0.3 cm. Estimated total number of nodules greater than or equal to 1 cm: 0. Sole Buffer nodules are described as follows: 1. Location: Left superior pole. Size: 1.0 x 0.7 x 1.1 cm, volume 0.4 mL. Previously: 0.9 x 0.7 x 0.7 cm, volume 0.3 mL. Nodule characteristics: Composition: Solid (2). Echogenicity: Isoechoic (1). Shape: Not taller than wide (0). Margins: Smooth (0). Echogenic Foci: None (0). ACR TI-RADS total points: 3 Previous: 4 ACR TI-RADS category: 3 Previous: 4 Significant change in size (>/= 20% in 2 dimensions and minimal increase of 2 mm or 50% or greater increase in volume): Slightly increased. Change in features: Yes. Change in ACR TI-RADS risk category: Yes. 2. Location: Left superior pole. Size: 0.7 x 0.4 x 0.6 cm, volume 0.1 mL. Previously: 0.5 x 0.4 x 0.4 cm, volume 0.06 mL. Nodule characteristics: Composition: Mixed cystic and solid (1). Echogenicity: Hypoechoic (2). Shape: Not taller than wide (0). Margins: Smooth (0). Echogenic Foci: None (0). ACR TI-RADS total points: 3 Previous: 3 ACR TI-RADS category: 3 Previous: 3 Significant change in size (>/= 20% in 2 dimensions and minimal increase of 2 mm or 50% or greater increase in volume): Slightly increased in size. Change in features: No. Change in ACR TI-RADS risk category: No. NODES: No lymphadenopathy is seen in the tissue surrounding the thyroid gland. US/US thyroid IMPRESSION: 1.0 cm left TR4 and 0.7 cm left TR3 thyroid nodule, as detailed above. Recommend follow up ultrasound in 1 year. Enlarged, heterogeneous, hypervascular thyroid gland. ACR TI-RADS RECOMMENDATION REFERENCE: Ultrasound-guided fine-needle aspiration, follow up ultrasound, no further followup. * TR1 (0 point) and TR2 (2 points): No FNA or followup * TR3 (3 points): FNA if more than or equal to 2.5 cm in maximum dimension, follow up ultrasound in 1, 3 and 5 years if 1.5 to 2.4 cm in maximum dimension. * TR4 (4-6 points): FNA if more than or equal to 1.5 cm in maximum dimension, follow up ultrasound in 1, 2, 3 and 5 years if 1 to 1.4 cm in maximum dimension. * TR5 (more than or equal to 7 points): FNA if more than or equal to 1 cm in maximum dimension, follow up ultrasound every year for 5 years if 0.5 to 0.9 cm in maximum dimension. * TR3, TR4 or TR5 nodules that are below the size threshold for follow up receive no followup.
== END 2024-02-06 13:56 | disposition home or self-care (01) ==
LOC: HO.US 13:55
PROVIDERS: PCP Internal Medicine; Visit Provider Internal Medicine
DX: E04.9 Nontoxic goiter, unspecified (principal)
CPT/HCPCS: 76536

== ENCOUNTER 2024-02-07 12:44 | Outpatient (AMB) | payer OTHER, SELFPAY ==
[2024-02-07 12:52] VITALS: BP 128/72; PULSE 89; O2SAT 97; BMI 30.1
--- NOTE | 2024-02-07 12:52 | A.OFFPC_ITS ---
Vital Signs 02/07/24 12:52 Height 5 ft 10 in Weight 210 lb BMI 30.1 BP 128/72 Blood Pressure Location Lt brachial Position Sitting Pulse 89 Pulse Source Pulse Oximeter Pulse Oximetry (%) 97 Oxygen Delivery Method Room Air Intake Visit Reasons: Annual exam Law Enforcement Instructor Required: No Accompanied by: Self / Same As Patient Allergies nalbuphine [From Nubain] Allergy (Intermediate, Verified 02/07/24 13:06) Rash tramadol [TRAMADOL] Allergy (Intermediate, Verified 02/07/24 13:06) tachycardia Medication List - Last Reconciled 02/07/24 by Rhianna Mauro MD alprazolam 0.25 mg PO DAILY PRN 30 days atorvastatin 20 mg PO BEDTIME 90 days azithromycin 250 mg PO DAILY 5 days cholecalciferol (vitamin D3) 50 mcg PO DAILY diclofenac sodium 1% (Voltaren Arthritis Pain) 4 grams topical QID PRN duloxetine 60 mg PO DAILY fluoxetine 1 cap PO QAM gabapentin 300 mg PO BID 30 days hydroxyzine pamoate 1 cap PO TID ibuprofen 600 mg PO Q8H PRN 7 days levothyroxine 125 mcg PO DAILY 90 days risperidone 1 tab PO BEDTIME terazosin 5 mg PO BEDTIME 90 days trazodone 1 tab PO BEDTIME Tobacco use date assessed: 01/12/24 Dental Screening Dental Screen Date: 02/07/24 Did you have a dental visit in the last 12 months?: Yes Did you have a dental problem in the last 6 months where you did not have access to dental care?: No Was dental information given to patient?: Patient has dentist HPI HPI Comments History of Present Illness Details This is a 58-year-old male with mild recurrent major depression that comes for his physical exam. Depression stable with SSRIs and this is follow by Psychiatry and counseling. Psychiatrist does not want to refill benzodiazepines therefore I am doing it. Has never had a colonoscopy and was order a Cologuard which . I will reorder the Cologuard. Walks with a cane for gait stability. Complains of restless legs. FORMERLY [facility] Medical History Mild recurrent major depression Mixed hyperlipidemia Physical exam Hypothyroidism Non-toxic nodular goiter History of COVID-19 Insomnia Autoimmune thyroiditis Depression with anxiety Bladder pain Fibromyalgia GERD (gastroesophageal reflux disease) DDD (degenerative disc disease) Back pain Anxiety Depression Hx of renal calculi History of pericarditis Hyperlipidemia YESY on CPAP Surgical History No significant past surgical history Family History Father Leukemia Liver cancer Mother Diabetes HTN (hypertension) CAD (coronary artery disease) Family/Other FH: mental illness Other FH: hypothyroidism Social History Household Members: Spouse Housing: Apartment Are you a primary medicare insurance specialist to a significant other at home: No Do you presently have visiting nurse or other home services: No Alcohol intake: never Patient Tobacco Use Status: Former Tobacco user Quit Date: 2016 Tobacco use type: Cigarette e-Cigarette/Vaping Use: Never Used Second Hand Smoke Exposure: No service: No Current occupational status: unemployed and disabled Cognitive needs: No Hearing needs: No Vision needs: Yes Questionnaire PHQ-9 Over the last 2 weeks, how often have you been bothered by any of the following problems? 1. Little interest or pleasure in doing things: not at all 2. Feeling down, depressed, or hopeless: more than half the days 3. Trouble falling or staying asleep, or sleeping too much: not at all 4. Feeling tired or having little energy: more than half the days 5. Poor appetite or overeating: not at all 6. Feeling bad about yourself - or that you are a failure or have let yourself or your family down: not at all 7. Trouble concentrating on things, such as reading the newspaper or watching television: not at all 8. Moving or speaking so slowly that other people could have noticed. Or the opposite - being so fidgety or restless that you have been moving around a lot more than usual: not at all 9. Thoughts that you would be better off or of hurting yourself in some way: not at all Total score: 4 Depression Screening Interpretation: Positive Depression Screening Follow-up: Existing condition and In treatment Depression Screening Done: Yes 66613 - PHQ-9 Billing: Yes Source: Developed by Drs. Elijah Krause, Elsie Syd Swift and colleagues, with an educational robb from [employer]. Thrive Questionnaire Date Thrive assessed: 01/12/24 AUDIT C Alcohol Use Questionnaire (AUDIT-C) 1. How often do you have a drink containing alcohol?: Never Total Score: 0 VAISHALI-7 AMB Questionnaire VAISHALI-7 Date VAISHALI - 7 assessed: 01/12/24 Source: Developed by Drs. Elijah Krause, Syd Elena and colleagues, with an educational robb from [employer]. Review of Systems Const All systems reviewed & are unremarkable except as noted in HPI and below Eyes Reports no additional complaints, Denies change in vision and Denies other visual disturbances Card Denies chest pain at rest, Denies chest pain with activity, Denies edema, Denies irregular heart rhythm, Denies claudication, Denies dyspnea, Denies dyspnea on exertion, Denies orthopnea, Denies paroxysmal nocturnal dyspnea and Denies slow heart rate Resp Denies cough, Denies dyspnea and Denies dyspnea on exertion GI Denies abdominal pain, Denies change in bowel habits, Denies excessive flatus, Denies nausea and Denies vomiting Denies urinary hesitancy, Denies urinary incontinence and Denies urinary urgency Musc Denies abnormal gait, Denies atrophy, Denies deformity and Denies limited range of motion Skin/Breast Denies bleeding lesions, Denies changing lesions and Denies rash Neuro Denies abnormal gait, Denies behavioral changes, Denies confusion and Denies lack of coordination Psych Denies behavioral changes and Denies confusion Physical exam (Primary Care) Vital Signs: Last Vital Signs Pulse 89 02/07/24 12:52 BP 128/72 02/07/24 12:52 Pulse Ox 97 02/07/24 12:52 Oxygen Delivery Method Room Air 02/07/24 12:52 BMI result Body Mass Index 30.1 Tobacco/Smoking Status: Tobacco use Status Tobacco use date assessed 01/12/24 02/07/24 12:57 Patient Tobacco Use Status Former Tobacco user 02/07/24 12:57 Tobacco use type Cigarette 02/07/24 12:57 e-Cigarette/Vaping Use Never Used 02/07/24 12:57 PHQ-9: PHQ-9 Score PHQ-9: Total score 4 02/07/24 12:57 Depression Screening Interpretation: Positive Depression Screening Follow-up: Existing condition and In treatment Thrive Assessment: Date of Thrive Assessment Date Thrive assessed 01/12/24 02/07/24 12:57 Const General: No confusion Orientation/consciousness: patient oriented x3 and No confusion Limitations: ambulation with cane HENMT Head: Yes normal to inspection, Yes normocephalic and Yes atraumatic Ears: external ears normal Eyes General: appearance normal, both eyes and all related structures Eyelids: Yes eyelids normal Conjunctivae: conjunctivae normal Neck Neck: Yes normal visual inspection and Yes supple Resp Effort & Inspection: normal respiratory effort Auscultation: clear to auscultation bilaterally Cardio Jugular venous distension: no JVD Rate: regular rate Rhythm: regular rhythm Heart sounds: S1 normal heart sound present and S2 normal heart sound present GI Inspection: Yes normal to inspection Palpation (GI): Soft to palpation and nontender Auscultation: normal bowel sounds Skin General skin exam: no rashes or lesions noted Neuro General: patient oriented x3, no focal motor deficits and No confusion Extrem General: Yes full ROM Psych Appearance: grossly normal Assessment and Plan Assessment & Plan (1) Physical exam: Code(s): Z00.00 - Encounter for general adult medical examination without abnormal findings Plan: Repeat in a year. (2) Mild recurrent major depression: Code(s): F33.0 - Major depressive disorder, recurrent, mild Plan: Continue SSRIs. Follow-up with psychiatry and counseling. Orders: Orders Thyroid Stimulating Hormone Today E06.3 - Autoimmune thyroiditis Referrals Cologuard Test Z12.11 - Encounter for screening for malignant neoplasm of colon, Z12.12 - Encounter for screening for malignant neoplasm of rectum Medications: New levothyroxine 137 mcg PO DAILY 90 days 90 tabs 0RF ropinirole administer 1-3 hours before bedtime 0.5 mg PO BEDTIME 90 days 90 tabs 0RF Discontinued levothyroxine Discontinued Reason: No Longer Medically Relevant 125 mcg PO DAILY 90 days 90 tabs 1RF E06.3 - Autoimmune thyroiditis Coding Level of Care Code Est Pt Prev Care 40-64y(38625) Diagnoses Physical exam Z00.00 Mild recurrent major depression F33.0 Time Spent (min) 33
== END 2024-02-07 13:18 | disposition home or self-care (01) ==
PROVIDERS: Visit Provider Internal Medicine
DX: Z00.00 Encounter for general adult medical examination without abnormal findings (principal); F33.0 Major depressive disorder, recurrent, mild
CPT/HCPCS: 99396

== ENCOUNTER 2024-07-16 13:18 | Outpatient (REF) | payer OTHER, SELFPAY ==
--- NOTE | ~2024-07-16 | US_ITS ---
EXAMINATION: US RETROPERITONEAL COMPLETE (RENAL) CLINICAL INFORMATION: Renal cysts. COMPARISON: Renal ultrasound dated 07/12/2023. TECHNIQUE: Real-time imaging of the kidneys and bladder. FINDINGS: RIGHT KIDNEY: 10.8 x 5.4 x 4.1 cm (SAG x AP x TRV). The kidney is normal in size, contour, and echogenicity. Renal cortical thickness is normal. No calculi or focal parenchymal lesions. No hydronephrosis. At the upper pole, an 8 mm benign, simple cyst is seen. At the interpolar aspect, 6 no longer an 8mm benign, simple cysts are seen. These require no imaging follow-up. LEFT KIDNEY: 13.7 x 5.4 x 4.1 cm (SAG x AP x TRV). The kidney is normal in size, contour, and echogenicity. Renal cortical thickness is normal. No calculi or focal parenchymal lesions. No hydronephrosis. At the upper pole, 7.5 cm and 4.0 cm benign, simple cysts are seen. At the interpolar aspect, an 8 mm benign, simple cyst is seen. These require no imaging follow-up. US/US renal BI IMPRESSION: Unremarkable examination. Electronically signed by: Gray Watkins MD 08/01/2024 08:17 PM EDT
== END 2024-07-16 13:19 | disposition home or self-care (01) ==
LOC: HO.US 13:18
PROVIDERS: PCP Internal Medicine; Visit Provider Urology
DX: N28.1 Cyst of kidney, acquired (principal)
CPT/HCPCS: 76775

== ENCOUNTER 2024-08-13 13:21 | Outpatient (AMB) | payer OTHER, SELFPAY ==
[2024-08-13 13:26] VITALS: BP 126/82; BMI 30.4
--- NOTE | 2024-08-13 13:26 | MHC.PC.OV ---
Vital Signs 08/13/24 13:26 Height 5 ft 10 in Weight 212 lb BMI 30.4 BP 126/82 Blood Pressure Location Lt brachial Position Sitting Intake Visit Reasons: depression with anxiety Fruit Bar Maker Required: No Accompanied by: Self / Same As Patient Allergies nalbuphine [From Nubain] Allergy (Intermediate, Verified 08/13/24 13:38) Rash tramadol [TRAMADOL] Allergy (Intermediate, Verified 08/13/24 13:38) tachycardia Medication List - Last Reconciled 08/13/24 by Rhianna Mauro MD alprazolam 0.25 mg PO DAILY PRN 30 days atorvastatin 20 mg PO BEDTIME 90 days cholecalciferol (vitamin D3) 50 mcg PO DAILY diclofenac sodium 1% (Voltaren Arthritis Pain) 4 grams topical QID PRN duloxetine 60 mg PO DAILY fluoxetine 1 cap PO QAM gabapentin 300 mg PO BID 30 days hydroxyzine pamoate 1 cap PO TID ibuprofen 600 mg PO Q8H PRN 7 days levothyroxine 137 mcg PO DAILY 90 days risperidone 1 tab PO BEDTIME ropinirole 0.5 mg PO BEDTIME 90 days Shower Chair As directed terazosin 5 mg PO BEDTIME 90 days trazodone 1 tab PO BEDTIME walker (Ultra-Light Rollator misc) As directed Tobacco use date assessed: 01/12/24 Dental Screening Dental Screen Date: 02/07/24 HPI HPI Comments History of Present Illness Details This is a 59-year-old male with autoimmune thyroiditis, mixed hyperlipidemia, mild recurrent major depression and generalized anxiety disorder that comes today complaining of a rash that as per patient is painful and started about a week ago in right side of the forehead. It does not involve the eye. He wants acyclovir cream. Labs were order in December and January but he did not know about the order and I will reorder it again. He is well aware that labs are fasting and order last 3 months. TSH was order to check his thyroid. On statins for his mixed hyperlipidemia and lipid panel will be repeated. Depression is follow by Psychiatry as well as anxiety. I was prescribing alprazolam but I think that he will benefit from the psychiatrist to take over anxiety and see if he will benefit from something else. Benzodiazepines can cause addiction, sedation and dementia and patient is well aware of the side effects. FORMERLY [facility] Medical History Mild recurrent major depression Mixed hyperlipidemia Physical exam Hypothyroidism Non-toxic nodular goiter History of COVID-19 Insomnia Autoimmune thyroiditis Depression with anxiety Bladder pain Fibromyalgia GERD (gastroesophageal reflux disease) DDD (degenerative disc disease) Back pain Anxiety Depression Hx of renal calculi History of pericarditis Hyperlipidemia YESY on CPAP Surgical History No significant past surgical history Family History Father Leukemia Liver cancer Mother Diabetes HTN (hypertension) CAD (coronary artery disease) Family/Other FH: mental illness Other FH: hypothyroidism Social History Household Members: Spouse Housing: Apartment Are you a primary outdoor emergency care technician to a significant other at home: No Do you presently have visiting nurse or other home services: No Alcohol intake: never Patient Tobacco Use Status: Former Tobacco user Tobacco use type: Cigarette e-Cigarette/Vaping Use: Never Used Second Hand Smoke Exposure: No service: No Current occupational status: unemployed and disabled Cognitive needs: No Hearing needs: No Vision needs: Yes Questionnaire Thrive Questionnaire Date Thrive assessed: 01/12/24 Are you currently unemployed and looking for a job?: I choose not to answer this question VAISHALI-7 AMB Questionnaire VAISHALI-7 Date VAISHALI - 7 assessed: 01/12/24 Source: Developed by Drs. Elijah Krause, Elsie Castelan, Syd Carvalho and colleagues, with an educational robb from [employer]. Review of Systems Const All systems reviewed & are unremarkable except as noted in HPI and below Card Denies chest pain at rest, Denies chest pain with activity, Denies edema, Denies irregular heart rhythm, Denies claudication, Denies dyspnea, Denies dyspnea on exertion, Denies orthopnea, Denies paroxysmal nocturnal dyspnea and Denies slow heart rate Resp Denies cough, Denies dyspnea and Denies dyspnea on exertion GI Denies abdominal pain, Denies change in bowel habits, Denies excessive flatus, Denies nausea and Denies vomiting Skin/Breast Reports rash Physical exam (Primary Care) Vital Signs: Last Vital Signs BP 126/82 09/16/24 13:26 BMI result Body Mass Index 30.4 Tobacco/Smoking Status: Tobacco use Status Tobacco use date assessed 01/12/24 08/13/24 13:36 Patient Tobacco Use Status Former Tobacco user 08/13/24 13:36 Tobacco use type Cigarette 08/13/24 13:36 e-Cigarette/Vaping Use Never Used 08/13/24 13:36 Thrive Assessment: Date of Thrive Assessment Date Thrive assessed 01/12/24 08/13/24 13:36 Resp Effort & Inspection: normal respiratory effort Auscultation: clear to auscultation bilaterally Cardio Jugular venous distension: no JVD Rate: regular rate Rhythm: regular rhythm Heart sounds: S1 normal heart sound present and S2 normal heart sound present Skin Rashes: rashes noted Extrem General: Yes full ROM Assessment and Plan Assessment & Plan (1) Mixed hyperlipidemia: Code(s): E78.2 - Mixed hyperlipidemia Plan: Continue statins. Repeat lipid panel. (2) Autoimmune thyroiditis: Code(s): E06.3 - Autoimmune thyroiditis Plan: Continue levothyroxine. Repeat TSH. (3) Mild recurrent major depression: Code(s): F33.0 - Major depressive disorder, recurrent, mild Plan: Continue fluoxetine. Follow-up with psychiatry. (4) VAISHALI (generalized anxiety disorder): Code(s): F41.1 - Generalized anxiety disorder Plan: Discontinue alprazolam. Follow-up with psychiatry. Orders: Orders Vitamin D 25-OH (D2 and D3) Today E55.9 - Vitamin D deficiency, unspecified Comprehensive Kennard. Panel Fast Today M54.16 - Radiculopathy, lumbar region Lipid Panel Today E78.5 - Hyperlipidemia, unspecified Thyroid Stimulating Hormone Today E03.9 - Hypothyroidism, unspecified Medications: New acyclovir 5% 1 appl topical ONCE 5 days 5 grams 0RF acyclovir 5% 1 appl topical DAILY 5 days 5 grams 0RF Discontinued alprazolam Discontinued Reason: No Longer Medically Relevant 0.25 mg PO DAILY 30 days PRN 30 tabs 0RF anxiety Coding Level of Care Code Est Pt Level 4 (20263) Complex EM visit Add On G2211 Diagnoses Mixed hyperlipidemia E78.2 Autoimmune thyroiditis E06.3 Mild recurrent major depression F33.0 VAISHALI (generalized anxiety disorder) F41.1 Time Spent (min) 23
== END 2024-08-13 14:00 | disposition home or self-care (01) ==
PROVIDERS: PCP Internal Medicine; Visit Provider Internal Medicine
DX: E78.2 Mixed hyperlipidemia (principal); E06.3 Autoimmune thyroiditis; F33.0 Major depressive disorder, recurrent, mild; F41.1 Generalized anxiety disorder

== ENCOUNTER → 2024-08-13 13:21 | Outpatient (BNVA) | payer OTHER, SELFPAY | PROVIDERS: PCP Internal Medicine; Visit Provider Internal Medicine | DX: E78.2 Mixed hyperlipidemia (principal); E06.3 Autoimmune thyroiditis; F33.0 Major depressive disorder, recurrent, mild; F41.1 Generalized anxiety disorder | CPT/HCPCS: 99212 ==

== ENCOUNTER 2024-08-28 15:07 | Outpatient (AMB) | payer OTHER, SELFPAY ==
--- NOTE | 2024-08-28 15:21 | MHC.OFFVIS ---
Intake Visit Reasons: 1Y Ultrasound/PSA(Set) Intake Note: Patient is present for 1y ultrasound/psa Urology Medication:terazosin Antibiotic Allergy:none Blood Thinner:none today's pvr: 0ml's Molding Associate Required: No Allergies nalbuphine [From Nubain] Allergy (Intermediate, Verified 08/28/24 15:22) Rash tramadol [TRAMADOL] Allergy (Intermediate, Verified 08/28/24 15:22) tachycardia HPI Comments Details: Josh FLOWERS is a very pleasant male. He is a patient of Dr Mauro. He seen for the following urologic conditions. - renal cyst - nephrolithiasis - lower urinary tract symptoms Afghan translation provided by qualified medical attendant Yearly follow-up Imaging stable no further follow-up required Good effect with terazosin continues Lower urinary tract symptoms Initial symptoms urinary urgency and frequency with weak stream Bladder ultrasound 12/18 minimal residual, no thickening Current therapy terazosin 5 mg Prior therapy tamsulosin Nephrolithiasis/Urolithiasis: 2018 Follow in 12 months with ultrasound the kidneys They are here for further evaluation of nephrolithiasis. Urolithiasis was diagnosed 07/07 [facility]. The patient previously had kidney stones whose composition w unknown. Laboratory investigations include no recent labs. 24 Hour urine evaluation none on file. Prior treatment(s) include observation. Prior imaging includes 07/15 , a CT (computed tomography) scan of the abdomen/pelvis (stone protocol) - 4.2 and 3.7 mm distal right ureter 07/15 , a renal ultrasound, showing no evidence of stones Left 5cm renal cyst 01/16 , a renal ultrasound, showing no evidence of stones, cyst on left side unchanged 01/17 , a renal ultrasound, showing no evidence of stones, left 6cm cyst - 03/19 renal ultrasound multiple cyst on left kidney - 08/21 renal ultrasound benign cyst left side stable no evidence of stones Hydronephrosis none. PSA 03/18 0.7 Current therapeutic plan will be to continue with imaging surveillance [facility] Medical History Mild recurrent major depression Mixed hyperlipidemia Physical exam Hypothyroidism Non-toxic nodular goiter History of COVID-19 Insomnia Autoimmune thyroiditis Depression with anxiety Bladder pain Fibromyalgia GERD (gastroesophageal reflux disease) DDD (degenerative disc disease) Back pain Anxiety Depression Hx of renal calculi History of pericarditis Hyperlipidemia YESY on CPAP Surgical History No significant past surgical history Family History Father Leukemia Liver cancer Mother Diabetes HTN (hypertension) CAD (coronary artery disease) Family/Other FH: mental illness Other FH: hypothyroidism Social History Household Members: Spouse Housing: Apartment Are you a primary personal care aide to a significant other at home: No Do you presently have visiting nurse or other home services: No Alcohol intake: never Patient Tobacco Use Status: Former Tobacco user Tobacco use type: Cigarette e-Cigarette/Vaping Use: Never Used Second Hand Smoke Exposure: No service: No Current occupational status: unemployed and disabled Cognitive needs: No Hearing needs: No Vision needs: Yes Review of Systems Const Denies chills and Denies fever(s) Card Reports no additional complaints and Denies syncope Resp Denies cough GI Denies abdominal pain and Denies heartburn Reports as per HPI and Denies change in libido Neuro Denies syncope Psych Denies change in libido Endo Denies change in libido Physical Exam Const General: cooperative, healthy appearing, comfortable and no acute distress Orientation/consciousness: patient oriented x3 HEENT Face and sinus: Yes normal facial exam Mouth: moist mucous membranes Neck Neck: Yes normal visual inspection, Yes full ROM and Yes trachea midline Chest Chest palpation & inspection: normal inspection of the chest Resp Effort & Inspection: normal respiratory effort, able to speak in complete sentences and no respiratory distress GI Inspection: Yes normal to inspection Back/Spine/Pelvis Cervical Spine: normal cervical lordosis Thoracic/Lumbar Spine: thoracic and lumbar spine normal to inspection Skin General skin exam: no rashes or lesions noted Neuro General: patient oriented x3, gait normal, tone normal and moves all extremities Extrem General: Yes normal to inspection and Yes capillary refill normal Office Procedures Post Void Residual Post Residual Void Post Void Residual (PVR): 0 [id number] Void Residual by ultrasound Results AMB Urinalysis, Automated UA Leukoctes 0 Parth/uL Last Edit by BRIAN Avery on 08/28/24 15:34 UA Nitrite Negative Last Edit by BRIAN Avery on 08/28/24 15:34 UA Urobilinogen 0.2 mg/dL Last Edit by Avril Swanson [facility] on 08/28/24 15:34 UA Protein 15 mg/dL Last Edit by Avril Swanson [facility] on 08/28/24 15:34 UA pH 5.5 Last Edit by Avril Swanson [facility] on 08/28/24 15:34 UA Blood 25 Eron/uL Last Edit by Avril Swanson [facility] on 08/28/24 15:34 UA Specific [place] 1.030 Last Edit by Avril Swanson [facility] on 08/28/24 15:34 UA Ketone Negative Last Edit by Avril Swanson [facility] on 08/28/24 15:34 UA Bilirubin 0 mg/dL Last Edit by Avril Swanson [facility] on 08/28/24 15:34 UA Glucose 0 mg/dL Last Edit by Avril Swanson [facility] on 08/28/24 15:34 Results Reviewed Results Reviewed: Laboratory Last Values Urine pH (Auto) 5.5 08/28/24 15:33 Specific [place] (Auto) 1.030 08/28/24 15:33 Urine Protein (Auto) 15 mg/dL 08/28/24 15:33 Glucose (UA)(Auto) 0 mg/dL 08/28/24 15:33 Urine Ketones (Auto) Negative 08/28/24 15:33 Urine Blood (Auto) 25 Eron/uL 08/28/24 15:33 Urine Nitrite (Auto) Negative 08/28/24 15:33 Urine Bilirubin (Auto) 0 mg/dL 08/28/24 15:33 Urine Urobilinogen (Auto) 0.2 mg/dL 08/28/24 15:33 Leukocyte Esterase (Auto) 0 Parth/uL 08/28/24 15:33 Assessment & Plan Assessment & Plan (1) Urinary urgency: Code(s): R39.15 - Urgency of urination Category: Medical (2) Renal cyst: Code(s): N28.1 - Cyst of kidney, acquired Category: Medical Plan Yearly follow-up Refill medications Orders: Orders AMB Urinalysis Automated 08/28/24 Z13.9 - Encounter for screening, unspecified Patient Instructions: Imaging studies, laboratory and physical exam results were discussed and reviewed in detail. No major barriers to patient understanding were identified. An opportunity to ask questions regarding the treatment plan was provided. All questions were answered. The patient expressed understanding and agreement with the above treatment plan. The patient is aware they should contact our office by phone for worsening of their current condition or the appearance of new urologic symptoms. Compliance is encouraged with any medications and followup testing that is ordered. It is a privilege to participate in the urologic care of your patient. If you have any questions or concerns regarding treatment for the above conditions, or other urologic issues, please do not hesitate to contact me. The office telephone contact is [phone]. This note is constructed using voice recognition software. While every effort has been made to ensure accuracy jira developer errors may have been included. Yours sincerely, Dr Thmoas Wray MD, [facility] - Urology Providers of Expert, Compassionate Care for the Genitourinary System Coding Level of Care Code Est Pt Level 4 (15923) Diagnoses Urinary urgency R39.15 Renal cyst N28.1 CPT Codes Post Residual Void - PVR CPT Code: 54782-Pdzz Void Residual by ultrasound ([id number])
== END 2024-08-28 16:23 | disposition home or self-care (01) ==
PROVIDERS: PCP Internal Medicine; Visit Provider Urology
DX: R39.15 Urgency of urination (principal); N28.1 Cyst of kidney, acquired
CPT/HCPCS: 99214

== ENCOUNTER → 2024-08-28 15:07 | Outpatient (BNVA) | payer OTHER, SELFPAY | PROVIDERS: PCP Internal Medicine; Visit Provider Urology | DX: N28.1 Cyst of kidney, acquired (principal); R39.15 Urgency of urination | CPT/HCPCS: 51798; 81003; 99212 ==

== ENCOUNTER 2024-11-30 14:52 | Outpatient (AMB) | payer OTHER, SELFPAY ==
[2024-11-30 14:57] VITALS: BP 120/68; PULSE 96; O2SAT 97; BMI 31.2
--- NOTE | 2024-11-30 14:57 | MHC.OFFVIS ---
Vital Signs 11/30/24 14:57 Height 5 ft 10 in Weight 217 lb 9.54 oz BMI 31.2 BP 120/68 Blood Pressure Location Lt brachial Position Sitting Pulse 96 Pulse Source Pulse Oximeter Pulse Oximetry (%) 97 Oxygen Delivery Method Room Air Intake Visit Reasons: FM Intake Note: Patient presents today for fibromyalgia follow up. He was seen by Abbey Harrison 02/15/23. Inspection Machine Tender Required: Yes Inspection Machine Tender Name: [id number] Allergies nalbuphine [From Nubain] Allergy (Intermediate, Verified 11/30/24 15:01) Rash tramadol [TRAMADOL] Allergy (Intermediate, Verified 11/30/24 15:01) tachycardia HPI Comments Details: Patient is a 59-year-old male with generalized anxiety disorder with depression, hypothyroidism secondary to autoimmune thyroiditis with elevated thyroglobulin and TPO antibodies, hyperlipidemia and history of renal calculi who presents for follow up of fibromyalgia and degenerative disc disease Interval History: Patient last seen 02/15/2023 with Karishma Harrison. At that time he remained on Cymbalta 60 mg for his fibromyalgia. He was following with pain management for his lumbar spine pain. No changes made to medication at that time Today, Patient complains of whole body Rheumatologic History: Patient followed for fibromyalgia as well as chronic back pain. Initial visit for evaluation of chronic pain revealed no evidence of synovitis or concern for autoimmune/connective tissue disease. Labs from first visit with negative RF, CCP, normal ESR and CRP. Very elevated TSH. No family history of RA or SLE. Current Rheumatology Medication(s): Duloxetine 60 mg daily Gabapentin 300 mg p.o. b.i.d. Diclofenac 1% topical PFSH Medical History Mild recurrent major depression Mixed hyperlipidemia Physical exam Hypothyroidism Non-toxic nodular goiter History of COVID-19 Insomnia Autoimmune thyroiditis Depression with anxiety Bladder pain Fibromyalgia GERD (gastroesophageal reflux disease) DDD (degenerative disc disease) Back pain Anxiety Depression Hx of renal calculi History of pericarditis Hyperlipidemia YESY on CPAP Surgical History No significant past surgical history Family History Father Leukemia Liver cancer Mother Diabetes HTN (hypertension) CAD (coronary artery disease) Family/Other FH: mental illness Other FH: hypothyroidism Social History Household Members: Spouse Housing: Apartment Are you a primary primary care physician to a significant other at home: No Do you presently have visiting nurse or other home services: No Alcohol intake: never Patient Tobacco Use Status: Former Tobacco user Tobacco use type: Cigarette e-Cigarette/Vaping Use: Never Used Second Hand Smoke Exposure: No service: No Current occupational status: unemployed and disabled Cognitive needs: No Hearing needs: No Vision needs: Yes Review of Systems Const Details: Review of Systems Constitutional: Denies fever, chills, weight loss ENT: Denies vision changes, eye pain or eye redness, dental caries, dry mouth GI: Denies nausea, vomiting, diarrhea, abdominal pain, change in BM Pulm: Denies SOB, CALVIN, hemoptysis, wheezing Cards: Denies chest pain, palpitations Skin: Denies Raynaud's, rash, nail changes, photosensitivity, PRODUCT MANAGEMENT MANAGER: Denies headaches, weakness, paresthesias, recurrent falls MSK: as per HPI All other systems reviewed and are unremarkable except noted above Physical Exam Vital Signs: Last Vital Signs Pulse 96 11/30/24 14:57 BP 120/68 11/30/24 14:57 Pulse Ox 97 11/30/24 14:57 Oxygen Delivery Method Room Air 11/30/24 14:57 BMI result Body Mass Index 31.2 Physical Examination CONSTITUITIONAL Patient alert and cooperative. Well appearing and in no apparent painful distress HEENT Conjunctiva and sclera clear. ?Pupils equal round and reactive to light. ?No lymphadenopathy. ? CHEST/RESPIRATORY SYSTEM Normal respiratory effort and able to speak in complete sentences. ?Clear to auscultation bilaterally. ?No crackles, rales, rhonchi, wheezes heard. CARDIAC SYSTEM Regular rate and rhythm. ?S1 and S2 heard no murmurs. ?Radial pulses intact bilaterally MSK Hands: ?Good grip boss strength bilaterally. No deformities noted. ?No synovitis noted to the MCPs, PIPs or DIPs. ?No tenderness to palpation of these joints. Wrists: ?Full range of motion at the wrists without pain. ?No tenderness to palpation or synovitis noted to the wrists. Elbows: Full range of motion without pain. No tenderness, weakness, swelling, increased warmth or erythema. Shoulders: Decreased range of motion to bilateral shoulders with tenderness to palpation of the deltoid muscle specifically Hip bursa: No tenderness to palpation Knees: ?Full range of motion. ?No tenderness, swelling, increased warmth or erythema.?No effusion or crepitations Tender points:?Tenderness to palpation of the bilateral trapezius, supraspinatus, greater trochanters, anterior costochondral junctions, bilateral gluteal areas, bilateral suboccipital muscle insertions SKIN Skin intact without rashes. Assessment & Plan Assessment & Plan (1) Shoulder pain, bilateral: Code(s): M25.511 - Pain in right shoulder; M25.512 - Pain in left shoulder Category: Medical Qualifiers: Chronicity: chronic Plan: #Bilateral shoulder pain Patient with bilateral shoulder pain on examination this seems to be consistent with rotator cuff pathology and probably also has some underlying OA changes to the AC joint as well. Plan - XR Bilat Shoulder - Physical therapy (2) Fibromyalgia: Comment: Currently managed with Cymbalta prior to 2019-present Code(s): M79.7 - Fibromyalgia Category: Medical Plan: #Fibromyalgia Discussed other medication options for patient including muscle relaxants and Celebrex. Patient declined at this time. Gabapentin seems to be helping and it does not cause a lot of drowsiness so we will increase the dose to 2 tablets twice a day Plan - Increase gabapentin to 600mg (300mg x 2 tabs) twice a day - Encouraged stretching and exercise - Continue duloxetine 60mg from primary - RTC 1 year or sooner Plan I spent 30 minutes reviewing the record and labs, seeing the patient, discussing the treatment plan and documenting in the medical record Orders: Orders XR shoulder RT min 2V Today M25.511 - Pain in right shoulder, M25.512 - Pain in left shoulder XR shoulder LT min 2V Today M25.511 - Pain in right shoulder, M25.512 - Pain in left shoulder PT Evaluation and Treatment Today M25.511 - Pain in right shoulder, M25.512 - Pain in left shoulder Medications: Changed From gabapentin 300 mg PO BID 30 days 60 caps 0RF for pain M54.16 - Radiculopathy, lumbar region, M79.7 - Fibromyalgia To gabapentin 600 mg (2 x 300 mg) PO BID 30 days 120 caps 6RF for pain M54.16 - Radiculopathy, lumbar region, M79.7 - Fibromyalgia Coding Level of Care Code Est Pt Level 4 (87095) Diagnoses Shoulder pain, bilateral M25.511; M25.512 Chronicity: chronic Fibromyalgia M79.7
== END 2024-11-30 15:47 | disposition home or self-care (01) ==
PROVIDERS: PCP Internal Medicine; Visit Provider Student in an Organized Health Care Education/Training Program
DX: M25.511 Pain in right shoulder (principal); M25.512 Pain in left shoulder; M79.7 Fibromyalgia
CPT/HCPCS: 99214

== ENCOUNTER → 2024-11-30 14:52 | Outpatient (BNVA) | payer OTHER, SELFPAY | PROVIDERS: PCP Internal Medicine; Visit Provider Student in an Organized Health Care Education/Training Program | DX: M79.7 Fibromyalgia (principal); M25.511 Pain in right shoulder; M25.512 Pain in left shoulder | CPT/HCPCS: 99212 ==

== ENCOUNTER 2025-01-22 16:42 | Outpatient (AMB) | payer OTHER, SELFPAY ==
--- NOTE | 2025-01-22 16:48 | A.OFFPC_ITS ---
Vital Signs 01/22/25 16:51 Height 5 ft 10 in Weight 214 lb BMI 30.7 BP 136/84 Blood Pressure Location Lt brachial Position Sitting Intake Visit Reasons: follow up Intake Note: Patient here for a follow up Television And Radio Repairer Required: Yes Television And Radio Repairer Language: Flame Annealing Machine Setter Name: Rhianna Mauro MD Information Interpreted: non-clinical & clinical Accompanied by: Self / Same As Patient Allergies nalbuphine [From Nubain] Allergy (Intermediate, Verified 01/22/25 17:03) Rash tramadol [TRAMADOL] Allergy (Intermediate, Verified 01/22/25 17:03) tachycardia Medication List - Last Reconciled 01/22/25 by Rhianna Mauro MD alprazolam 0.25 mg PO BEDTIME 30 days atorvastatin 20 mg PO BEDTIME 90 days cholecalciferol (vitamin D3) 50 mcg PO DAILY 90 days diclofenac sodium 1% (Voltaren Arthritis Pain) 4 grams topical QID PRN duloxetine 60 mg PO DAILY fluoxetine 1 cap PO QAM gabapentin 600 mg (2 x 300 mg) PO BID 30 days hydroxyzine pamoate 1 cap PO TID ibuprofen 600 mg PO Q8H PRN 7 days levothyroxine 137 mcg PO DAILY 90 days penciclovir 1% (Denavir) 1 appl topical Q2H 4 days risperidone 1 tab PO BEDTIME ropinirole 0.5 mg PO BEDTIME 90 days Shower Chair As directed terazosin 5 mg PO BEDTIME 90 days trazodone 1 tab PO BEDTIME walker (Ultra-Light Rollator misc) As directed Tobacco use date assessed: 01/22/25 Dental Screening Dental Screen Date: 01/22/25 Did you have a dental visit in the last 12 months?: No Did you have a dental problem in the last 6 months where you did not have access to dental care?: No Was dental information given to patient?: Patient has dentist HPI HPI Comments History of Present Illness Details The patient is a 59-year-old male presenting with a need for routine follow-up and medication management. He has a noted allergy to Novocaine and Tramadol, which has resulted in tachycardia. The patient is managing hyperlipidemia with atorvastatin 20 mg taken nightly. He is being treated for Major Depressive Disorder with Anxiety, attending psychiatric consultation, and is on several psychotropic medications, including duloxetine, fluoxetine, and risperidone. The patient reports a previous finding of vitamin D deficiency and is taking supplements, though recent levels suggested potential low values. Thyroid management is ongoing with levothyroxine 137 mcg, prescribed due to hypothyroidism and a thyroid nodule identified approximately a year ago. A follow-up ultrasound for the thyroid nodule was recommended. The patient reports spinal and shoulder pain, attended physical therapy, and was recently prescribed gabapentin. [facility] Medical History (Updated 01/22/25 @ 17:09 by Rhianna Mauro MD) Shoulder pain, bilateral Mild recurrent major depression Mixed hyperlipidemia Physical exam Hypothyroidism Non-toxic nodular goiter History of COVID-19 Insomnia Autoimmune thyroiditis Depression with anxiety Bladder pain Fibromyalgia GERD (gastroesophageal reflux disease) DDD (degenerative disc disease) Back pain Anxiety Depression Hx of renal calculi History of pericarditis Hyperlipidemia YESY on CPAP Surgical History No significant past surgical history Family History Father Leukemia Liver cancer Mother Diabetes HTN (hypertension) CAD (coronary artery disease) Family/Other FH: mental illness Other FH: hypothyroidism Social History Household Members: Spouse Housing: Apartment Are you a primary certified caregiver to a significant other at home: No Do you presently have visiting nurse or other home services: No Alcohol intake: never Patient Tobacco Use Status: Former Tobacco user Tobacco use type: Cigarette e-Cigarette/Vaping Use: Never Used Second Hand Smoke Exposure: No service: No Current occupational status: unemployed and disabled Cognitive needs: No Hearing needs: No Vision needs: Yes Questionnaire PHQ-9 Over the last 2 weeks, how often have you been bothered by any of the following problems? 1. Little interest or pleasure in doing things: not at all 2. Feeling down, depressed, or hopeless: not at all 3. Trouble falling or staying asleep, or sleeping too much: not at all 4. Feeling tired or having little energy: not at all 5. Poor appetite or overeating: not at all 6. Feeling bad about yourself - or that you are a failure or have let yourself or your family down: not at all 7. Trouble concentrating on things, such as reading the newspaper or watching television: not at all 8. Moving or speaking so slowly that other people could have noticed. Or the opposite - being so fidgety or restless that you have been moving around a lot more than usual: not at all 9. Thoughts that you would be better off or of hurting yourself in some way: not at all Total score: 0 Depression Screening Interpretation: Negative Depression Screening Done: Yes 09653 - PHQ-9 Billing: Yes Source: Developed by Drs. Elijah Krause, Elsie Castelan, Syd Carvalho and colleagues, with an educational robb from [employer]. Thrive Questionnaire Date Thrive assessed: 01/22/25 I am a: Patient What is your living situation today?: I have a steady place to live Within the past 12 months, did the food you bought not last and you didn't have the money to get more?: Never true Within the past 12 months, did you worry whether your food would run out before you got money to buy more?: Never true Do you have trouble paying for medicines?: No Do you have trouble getting transportation to medical appointments?: No Do you have trouble paying your heating and electricity bill?: No Do you have trouble taking care of your child, family member or friend?: No Do you have trouble with day-to-day activities such as bathing, preparing meals, shopping, managing finances, etc.?: No Are you currently unemployed and looking for a job?: No Are you interested in more education?: No Please select the resources that you would like help with: None Currently or been in a relationship where the following occur: No concerns reported THRIVE Score: 0 AUDIT C Alcohol Use Questionnaire (AUDIT-C) 1. How often do you have a drink containing alcohol?: Never 3. How often do you have six or more drinks on one occasion?: Never Total Score: 0 Score Reviewed/Action Taken: No VAISHALI-7 AMB Questionnaire VAISHALI-7 Date VAISHALI - 7 assessed: 01/22/25 Feeling nervous, anxious, or on edge: 0 = Not at all Not being able to stop or control worryin = Not at all Worrying too much about different things: 0 = Not at all Trouble relaxin = Not at all Being so restless that it is hard to sit still: 0 = Not at all Becoming easily annoyed or irritable: 0 = Not at all Feeling afraid as if something awful might happen: 0 = Not at all Total VAISHALI-7 score (0-4 normal; 5-9 mild; 10-14 moderate; 15-21 severe): 0 Source: Developed by Drs. Elijah Krause, Elsie Castelan, Syd Carvalho and colleagues, with an educational robb from [employer]. VAISHALI-7 Assessment Billing VAISHALI-7 Assessment Tool: VAISHALI-7 Assessment 00623 Review of Systems Const All systems reviewed & are unremarkable except as noted in HPI and below Card Denies chest pain at rest, Denies chest pain with activity, Denies edema, Denies irregular heart rhythm, Denies claudication, Denies dyspnea, Denies dyspnea on exertion, Denies orthopnea, Denies paroxysmal nocturnal dyspnea and Denies slow heart rate Resp Denies cough, Denies dyspnea and Denies dyspnea on exertion GI Denies abdominal pain, Denies change in bowel habits, Denies excessive flatus, Denies nausea and Denies vomiting Denies urinary hesitancy, Denies urinary incontinence and Denies urinary urgency Musc Denies atrophy, Denies deformity and Denies limited range of motion Skin/Breast Denies bleeding lesions, Denies changing lesions and Denies rash Physical exam (Primary Care) Vital Signs: Last Vital Signs BP 136/84 01/22/25 16:51 BMI result Body Mass Index 30.7 Tobacco/Smoking Status: Tobacco use Status Tobacco use date assessed 01/22/25 01/22/25 16:54 Patient Tobacco Use Status Former Tobacco user 01/22/25 16:54 Tobacco use type Cigarette 01/22/25 16:54 e-Cigarette/Vaping Use Never Used 01/22/25 16:54 PHQ-9: PHQ-9 Score PHQ-9: Total score 0 01/22/25 17:08 Depression Screening Interpretation: Negative Thrive Assessment: Date of Thrive Assessment Date Thrive assessed 01/22/25 01/22/25 16:54 Currently or been in a relationship where the following occur: No concerns reported Resp Effort & Inspection: normal respiratory effort Auscultation: clear to auscultation bilaterally Cardio Jugular venous distension: no JVD Rate: regular rate Rhythm: regular rhythm Heart sounds: S1 normal heart sound present and S2 normal heart sound present Extrem General: Yes full ROM Coding Level of Care Code Est Pt Level 4 (24118) Complex EM visit Add On G2211 Diagnoses Thyroid nodule E04.1 Mild recurrent major depression F33.0 VAISHALI (generalized anxiety disorder) F41.1 Hypothyroidism E03.9 Fibromyalgia M79.7 Mixed hyperlipidemia E78.2 Additional Codes VAISHALI-7 Assessment Billing - VAISHALI-7 Assessment Tool: VAISHALI-7 Assessment 92270 ([id number]) PHQ-9 - 19192 - PHQ-9 Billing: Yes ([id number]) Time Spent (min) 23 Assessment & Plan Assessment & Plan (1) Thyroid nodule: Code(s): E04.1 - Nontoxic single thyroid nodule Category: Medical (2) Mild recurrent major depression: Code(s): F33.0 - Major depressive disorder, recurrent, mild Category: Medical (3) VAISHALI (generalized anxiety disorder): Code(s): F41.1 - Generalized anxiety disorder Category: Medical (4) Hypothyroidism: Code(s): E03.9 - Hypothyroidism, unspecified Category: Medical (5) Fibromyalgia: Comment: Currently managed with Cymbalta prior to 2019-present Code(s): M79.7 - Fibromyalgia Category: Medical (6) Mixed hyperlipidemia: Code(s): E78.2 - Mixed hyperlipidemia Category: Medical Plan - Maintain current atorvastatin regimen for hyperlipidemia. - Reinstate Vitamin D supplementation given past deficiency and low levels. - Continue psychiatric medications including duloxetine and fluoxetine, managed by psychiatry. - Follow up with thyroid ultrasound to monitor pre-existing nodule as advised last year. - Continue gabapentin for spinal pain management. - Initiate fasting laboratories for general health markers, including lipid profile and glucose levels. Patient was informed and verbally consented to the use of an ambient scribe for clinic note documentation during this visit. During this visit, we reviewed the plan for routine follow-up and discussed ongoing management of hyperlipidemia, thyroid nodule, and depression with anxiety. The patient is aware of his medication regimen and allergies. We addressed the necessity of repeating thyroid imaging to monitor the nodule. The patient agreed to perform fasting laboratories to assess cholesterol and glucose levels. I advised him about supplementing with Vitamin D based on prior low levels as a precautionary measure. Orders: Orders US thyroid 01/22/25 E04.1 - Nontoxic single thyroid nodule Vitamin D 25-OH Total 01/22/25 E55.9 - Vitamin D deficiency, unspecified Vitamin B12 and Folate 01/22/25 E53.8 - Deficiency of other specified B group vitamins Thyroid Stimulating Hormone 01/22/25 E03.9 - Hypothyroidism, unspecified Lipid Panel 01/22/25 E78.2 - Mixed hyperlipidemia, E78.5 - Hyperlipidemia, unspecified Comprehensive [place]. Panel Fast 01/22/25 E78.2 - Mixed hyperlipidemia Patient Instructions: - Continue prescribed medications as currently instructed. - Schedule required laboratory tests within the next month. - Repeat thyroid ultrasound as planned to monitor thyroid nodule. - Maintain physical therapy routines for spinal and shoulder management. - Return to clinic for follow-up or if any new symptoms arise.
[2025-01-22 16:51] VITALS: BP 136/84; BMI 30.7
--- OUTSIDE RECORDS SUMMARY | 2025-01-22 19:51 | XMS_ITS | Clinical Summary ---
Author Organization [employer] [facility] it Address [address] [place] [address] Care Team Providers Care Compliance Engineer Products Name Role Phone Unavailable Primary Care Provider Unavailabl e Social History Tobacco Use Types Packs/Day Years Used Date Smoking Tobacco: Never Assessed Sex and Gender Information Value Date Recorded Sex Assigned at Not on file Legal Sex Male 12:24 AM EST Gender Identity Not on file Sexual Orientation Not on file Plan of Treatment Health Maintenance Due Date Last Done Comments COVID-19 Vaccine (#1) 1972 DTaP,Tdap,and Td Vaccines (1 - Tdap) 1986 Hepatitis B Vaccines (1 of 3 - 19+ 3-dose series) 1986 Pneumococcal Vaccine: 50+ Ye ars (1 of 1 - PCV) 2017 Zoster Vaccines (1 of 2) 2017 Cholesterol Screening (Lipid Panel) 10/31/2022 Colorectal Cancer Screening: Colonoscopy 10/31/2022 Depression Screening 10/31/2022 HIV Screening 10/31/2022 Hepatitis C Screening 10/31/2022 Social Influencers of Health Screening 10/31/2022 Influenza Vaccine (#1) 2024 HIB Vaccines Aged Out No longer eligi ble based on patient's age to complete this topic HPV Vaccines Aged Out No longer eligi ble based on patient's age to complete this topic Hepatitis A Vaccines Aged Out No long er eligible based on patient's age to complete this topic IPV Vaccines Aged Out No longer eligi ble based on patient's age to complete this topic MMR Vaccines Aged Out No longer eligi ble based on patient's age to complete this topic Meningococcal ACWY Vaccine Aged Out N o longer eligible based on patient's age to complete this topic Meningococcal B Vacine Aged Out No lo nger eligible based on patient's age to complete this topic Pneumococcal Vaccine: Pediat rics (0 to 5 Years) and At-Risk Patients (6 to 64 Years) Aged Out No longer eligible b ased on patient's age to complete this topic RSV Immunization Patients Un paulino 20 months Aged Out No longer eligible b ased on patient's age to complete this topic Varicella Vaccines Aged Out No longer eligible based on patient's age to complete this topic
== END 2025-01-22 17:18 | disposition home or self-care (01) ==
PROVIDERS: PCP Internal Medicine; Visit Provider Internal Medicine
DX: E04.1 Nontoxic single thyroid nodule (principal); F33.0 Major depressive disorder, recurrent, mild; F41.1 Generalized anxiety disorder; E03.9 Hypothyroidism, unspecified; M79.7 Fibromyalgia; E78.2 Mixed hyperlipidemia

== ENCOUNTER → 2025-01-22 16:42 | Outpatient (BNVA) | payer OTHER, SELFPAY | PROVIDERS: PCP Internal Medicine; Visit Provider Internal Medicine | DX: E04.1 Nontoxic single thyroid nodule (principal); F33.0 Major depressive disorder, recurrent, mild; F41.1 Generalized anxiety disorder; E03.9 Hypothyroidism, unspecified; M79.7 Fibromyalgia; E78.2 Mixed hyperlipidemia | CPT/HCPCS: 96127; 99212 ==

== ENCOUNTER 2025-04-03 14:24 | Outpatient (REF) | payer OTHER, SELFPAY ==
--- NOTE | ~2025-04-03 | US_ITS ---
EXAMINATION: US THYROID CLINICAL INFORMATION: Nontoxic single thyroid nodule. COMPARISON: February 06, 2024. TECHNIQUE: Linear transducer grayscale and color Doppler examination with attention to the region of the thyroid. FINDINGS: SIZE: Measurements of the thyroid lobes and nodules are given in sagittal, anteroposterior and transverse dimensions respectively. Right Thyroid Lobe: 7.2 x 2.6 x 2.5 cm, volume 25 mL. Previous: 5.4 x 2.0 x 2.5 cm, volume: 14 cc. Parenchyma: The gland echotexture is heterogeneous. Thyroid vascularity is normal.. Punctate calcification. Left Thyroid Lobe: 5.1 x 2.2 x 1.8 cm, volume 11 mL. Previous: 5.7 x 2.4 x 2.5 cm and volume: 18 cc. Parenchyma: The gland echotexture is heterogeneous. Thyroid vascularity is normal. Isthmus: 0.8 cm in maximum AP dimension. Previous: 0.8 cm. Estimated total number of nodules greater than or equal to 1 cm: 1. Galley Cook nodules are described as follows: 1. Location: Upper, left lobe. Size: 1.0 x 0.5 x 0.7 cm, volume 0.2 mL. Previous: 1.0 x 0.7 x 1.1 cm and volume: 0.4 cc. Nodule characteristics: Composition: Solid (2). Echogenicity: Isoechoic (1). Shape: Not taller than wide (0). Margins: Smooth (0). Echogenic Foci: None (0). ACR TI-RADS total points: 3 ACR TI-RADS category: 3 2. Location: Upper, left thyroid lobe. Size: 0.6 x 0.6 x 0.6 cm, volume 0.1 mL. Previous: 0.7 x 0.4 x 0.6 cm and volume: 0.1 cc. Nodule characteristics: Composition: Mixed cystic and solid (1). Echogenicity: Hypoechoic (2). Shape: Not taller than wide (0). Margins: Ill-defined (0). Echogenic Foci: None (0). ACR TI-RADS total points: 3 ACR TI-RADS category: 3 US/US thyroid IMPRESSION: ACR TI RADS 3 ACR TI-RADS RECOMMENDATION REFERENCE: Ultrasound-guided fine-needle aspiration, followup ultrasound, no further follow up. * TR1 (0 point) and TR2 (2 points): No FNA or follow up. * TR3 (3 points): FNA if more than or equal to 2.5 cm in maximum dimension, followup ultrasound in 1, 3 and 5 years if 1.5 to 2.4 cm in maximum dimension. * TR4 (4-6 points): FNA if more than or equal to 1.5 cm in maximum dimension, followup ultrasound in 1, 2, 3 and 5 years if 1 to 1.4 cm in maximum dimension. * TR5 (more than or equal to 7 points): FNA if more than or equal to 1 cm in maximum dimension, followup ultrasound every year for 5 years if 0.5 to 0.9 cm in maximum dimension. * TR3, TR4 or TR5 nodules that are below the size threshold for followup receive no follow up. Electronically signed by: Adelfo Guajardo MD 04/03/2025 03:44 PM EDT
--- OUTSIDE RECORDS SUMMARY | 2025-04-03 15:37 | XMS_ITS | Clinical Summary ---
Author Organization [email or web address] [facility] it Address [address] [place] [address] Care Team Providers Care Ui Programmer Name Role Phone Unavailable Primary Care Provider [...] Influencers of Health Screening 10/31/2022 Influenza Vaccine (Season Ended) 2025 HIB Vaccines Aged Out No longer eligi [...] age to complete this topic Meningococcal B Vaccine Aged Out No l onger eligible based on patient's age to complete [...]
== END 2025-04-03 14:25 | disposition home or self-care (01) ==
LOC: HO.US 14:24
PROVIDERS: PCP Internal Medicine; Visit Provider Internal Medicine
DX: E04.1 Nontoxic single thyroid nodule (principal)
CPT/HCPCS: 76536

== ENCOUNTER → 2025-04-03 14:26 | Outpatient (BNV) | payer OTHER, SELFPAY | PROVIDERS: PCP Internal Medicine; Visit Provider Radiology Diagnostic Radiology | DX: E04.1 Nontoxic single thyroid nodule (principal) | CPT/HCPCS: 76536 ==